=== PATIENT | male | born 1960 | race Caucasian/White ===

== ENCOUNTER 2017-02-11 10:40 | Outpatient (CLI) | payer MEDICARE ==
--- NOTE | 2017-02-11 19:18 | RAD ---
CHEST TWO VIEWS 02/11/17 The heart is normal in size for body habitus. The mediastinum shows no widening or shift. The lungs are fully inflated and clear. At most, there may be a little bit of lingular scarring. Degenerative changes are prominent in the thoracic spine. No gross fractures were indicated. IMPRESSION: No acute thoracic finding. POS: HOME
== END 2017-02-11 10:41 | disposition home or self-care (01) ==
LOC: BURRAD 10:40
PROVIDERS: ATTEND Nurse Practitioner
DX: S20.212A Contusion of left front wall of thorax, initial encounter (principal)
CPT/HCPCS: 71020

== ENCOUNTER 2022-04-16 01:21 | Inpatient (IN) | payer MEDICARE ==
[2022-04-16 01:45] VITALS: BMI 51.3
[2022-04-16] MEDS ORDERED: Hydrocodone-Acetamin 15 ML UDCUP PO PRN (03:14)
[2022-04-16] MEDS ORDERED: Hydrocodone-Acetamin 15 ML UDCUP ONE (03:41)
[2022-04-16] MEDS ORDERED: [UNRECOGNIZED DRUG - OTHER] PO PRN (06:25)
[2022-04-16] MEDS ORDERED: Cyclobenzaprine 10 MG TAB PO PRN ×2 (06:25→06:30)
[2022-04-16] MEDS ORDERED: ACETAMINOPHEN PO PRN ×2 (06:25→06:33)
[2022-04-16] MEDS ORDERED: [UNRECOGNIZED DRUG - OTHER] PO PRN (06:33)
[2022-04-16] MEDS ORDERED: Gabapentin 300 MG CAP PO SCH (09:00)
[2022-04-16] MEDS ORDERED: PHENTERMINE HCL 37.5 MG PO SCH ×2 (09:00)
[2022-04-16] MEDS ORDERED: Fluticasone Propionate Nasal Spray 16 gm Bottle NASAL SCH ×2 (09:00)
[2022-04-16] MEDS: Gabapentin 300 MG CAP PO SCH ×2 (09:24→21:33)
[2022-04-16] MEDS: Tamsulosin HCl 0.4 MG CAP PO SCH (09:24)
[2022-04-16] MEDS: Aspirin 81 mg Enteric Coated Tablet PO SCH (09:24)
[2022-04-16] MEDS: DULoxetine 30 MG CAP PO SCH (09:24)
[2022-04-16] MEDS: Lisinopril 5 MG TAB PO SCH (09:26)
[2022-04-16] MEDS: Cyclobenzaprine 10 MG TAB PO PRN ×2 (09:40→19:41)
[2022-04-16 09:46] LABS: SARS-CoV-2 NAA Rapid Test Not Detected (NotDetected)
[2022-04-16] MEDS ORDERED: Fluticasone Propionate Nasal Spray 16 gm Bottle NASAL PRN (10:35)
[2022-04-16] MEDS: HYDROcodone/Acetaminophen 10/325 mg Tablet PO PRN ×2 (11:01→19:41)
[2022-04-16] MEDS: Polyethylene Glycol 3350 17 GM Packet PO SCH (21:32)
[2022-04-16] MEDS: Enoxaparin Sodium 40 MG/0.4 ML SYRINGE SC SCH (21:34)
[2022-04-17] MEDS: HYDROcodone/Acetaminophen 10/325 mg Tablet PO PRN ×2 (01:42→09:18)
[2022-04-17 05:47] LABS: #Basophils 0.1 thou/uL (0.0-0.2); #Eosinphils 0.6 thou/uL (0.0-0.7); #Lymphocytes 1.8 thou/uL (1.20-3.40); #Monocytes 1.3 thou/uL (0.11-0.59); #Neutrophils 7.5 thou/uL (1.40-6.50); %Basophils 1.1 % (0.0-1.0); %Eosinophils 5.3 % (0.0-10.0); %Lymphocytes 15.8 % (21.0-51.0); %Monocytes 11.2 % (0.0-10.0); %Neutrophils 66.7 % (42.0-75.0); Mean Corpuscular HGB CONC 32.8 g/dL (32.0-36.0); Mean Corpuscular Hemoglobin 27.7 pg (27.0-31.0); Mean Corpuscular Volume 84.4 fL (78.0-98.0); Mean Platelet Volume 6.5 fL (7.4-10.4); Platelet Count 396 thou/uL (130-400); RBC Distribution Width 13.9 % (11.5-14.5); Red Blood Cell (RBC) Count 3.63 mill/uL (4.70-6.10); White Blood Cell (WBC) Count 11.3 thou/uL (4.8-10.8)
[2022-04-17 05:52] LABS: ALT (SGPT) 26 U/L (8-55); AST (SGOT) 25 U/L (5-34); Albumin 3.2 g/dL (3.5-5.0); Alkaline Phosphatase 67 U/L (40-110); Anion Gap 15 mmol/L (10-20); BUN (Urea Nitrogen) 24 mg/dL (8.4-25.7); Bilirubin, Total 0.6 mg/dL (0.2-1.2); Calc. Creatinine Clearance 219 mL/min (70-130); Calcium 9.8 mg/dL (7.8-10.44); Carbon Dioxide 26 mmol/L (22-29); Chloride 100 mmol/L (98-107); Globulin 3.4 g/dL (2.4-3.5); Glucose 109 mg/dL (70-105); Potassium 4.4 mmol/L (3.5-5.1); Protein, Total 6.6 g/dL (6.0-8.3); Sodium 137 mmol/L (136-145)
[2022-04-17] MEDS: Levothyroxine Sodium 50 MCG TAB PO SCH (06:18)
[2022-04-17] MEDS: DULoxetine 30 MG CAP PO SCH (09:10)
[2022-04-17] MEDS: Tamsulosin HCl 0.4 MG CAP PO SCH (09:10)
[2022-04-17] MEDS: Gabapentin 300 MG CAP PO SCH ×2 (09:11→20:47)
[2022-04-17] MEDS: Loratadine 10 MG TAB PO SCH (09:12)
[2022-04-17] MEDS: Lisinopril 5 MG TAB PO SCH (09:12)
[2022-04-17] MEDS: Aspirin 81 mg Enteric Coated Tablet PO SCH (09:12)
[2022-04-17] MEDS: [UNRECOGNIZED DRUG - OTHER] PO SCH (09:14)
[2022-04-17] MEDS: MAGNESIUM PO SCH (09:14)
[2022-04-17] MEDS: CALCIUM PO SCH (09:14)
[2022-04-17] MEDS: ZINC PO SCH (09:14)
[2022-04-17] MEDS: Cyclobenzaprine 10 MG TAB PO PRN ×2 (09:15→17:48)
[2022-04-17 11:53] LABS: Free T4 (Free Thyroxine) 0.88 ng/dL (0.70-1.48)
[2022-04-17] MEDS: HYDROcodone/Acetaminophen 10/325 mg Tablet PO SCH ×3 (12:05→23:52)
[2022-04-17] MEDS: Bisacodyl 5 MG TAB PO PRN (12:14)
[2022-04-17] MEDS: Polyethylene Glycol 3350 17 GM Packet PO SCH (20:44)
[2022-04-17] MEDS: Enoxaparin Sodium 40 MG/0.4 ML SYRINGE SC SCH (20:45)
[2022-04-17] MEDS: Ibuprofen 800 MG TAB PO PRN (20:45)
[2022-04-18] MEDS: HYDROcodone/Acetaminophen 10/325 mg Tablet PO SCH ×3 (06:02→17:51)
[2022-04-18] MEDS: Levothyroxine Sodium 50 MCG TAB PO SCH (06:03)
[2022-04-18] MEDS: Ibuprofen 800 MG TAB PO PRN ×2 (06:10→20:16)
[2022-04-18] MEDS: Bisacodyl 5 MG TAB PO PRN (08:45)
[2022-04-18] MEDS: Cyclobenzaprine 10 MG TAB PO PRN ×2 (08:45→15:18)
[2022-04-18] MEDS: Loratadine 10 MG TAB PO SCH (08:46)
[2022-04-18] MEDS: DULoxetine 30 MG CAP PO SCH (08:46)
[2022-04-18] MEDS: Gabapentin 300 MG CAP PO SCH ×3 (08:46→20:21)
[2022-04-18] MEDS: Aspirin 81 mg Enteric Coated Tablet PO SCH (08:47)
[2022-04-18] MEDS: Tamsulosin HCl 0.4 MG CAP PO SCH (08:47)
[2022-04-18] MEDS: Lisinopril 5 MG TAB PO SCH (08:47)
[2022-04-18] MEDS: CALCIUM PO SCH (08:58)
[2022-04-18] MEDS: MAGNESIUM PO SCH (08:58)
[2022-04-18] MEDS: ZINC PO SCH (08:58)
[2022-04-18] MEDS: [UNRECOGNIZED DRUG - OTHER] PO SCH (08:58)
[2022-04-18] MEDS: Enoxaparin Sodium 40 MG/0.4 ML SYRINGE SC SCH (20:21)
[2022-04-18] MEDS: Polyethylene Glycol 3350 17 GM Packet PO SCH (20:22)
[2022-04-19] MEDS: HYDROcodone/Acetaminophen 10/325 mg Tablet PO SCH ×4 (00:11→18:03)
[2022-04-19] MEDS: Levothyroxine Sodium 50 MCG TAB PO SCH (05:57)
[2022-04-19] MEDS: Gabapentin 300 MG CAP PO SCH ×3 (09:58→21:54)
[2022-04-19] MEDS: DULoxetine 30 MG CAP PO SCH (09:58)
[2022-04-19] MEDS: Tamsulosin HCl 0.4 MG CAP PO SCH (09:59)
[2022-04-19] MEDS: Loratadine 10 MG TAB PO SCH (09:59)
[2022-04-19] MEDS: Lisinopril 5 MG TAB PO SCH (09:59)
[2022-04-19] MEDS: Aspirin 81 mg Enteric Coated Tablet PO SCH (10:00)
[2022-04-19] MEDS: Cyclobenzaprine 10 MG TAB PO PRN (10:03)
[2022-04-19] MEDS: Bisacodyl 5 MG TAB PO PRN (10:05)
[2022-04-19] MEDS: ZINC PO SCH (10:08)
[2022-04-19] MEDS: [UNRECOGNIZED DRUG - OTHER] PO SCH (10:08)
[2022-04-19] MEDS: MAGNESIUM PO SCH (10:08)
[2022-04-19] MEDS: CALCIUM PO SCH (10:08)
[2022-04-19] MEDS: Ibuprofen 800 MG TAB PO PRN (16:24)
[2022-04-19] MEDS: Enoxaparin Sodium 40 MG/0.4 ML SYRINGE SC SCH (21:53)
[2022-04-19] MEDS: Polyethylene Glycol 3350 17 GM Packet PO SCH (21:53)
[2022-04-20] MEDS: HYDROcodone/Acetaminophen 10/325 mg Tablet PO SCH ×4 (00:03→17:36)
[2022-04-20] MEDS: Polyethylene Glycol 3350 17 GM Packet PO SCH ×2 (00:05→20:40)
[2022-04-20] MEDS: [UNRECOGNIZED DRUG - OTHER] PO SCH ×2 (00:07→20:40)
[2022-04-20] MEDS: Cyclobenzaprine 10 MG TAB PO PRN ×2 (04:08→14:52)
[2022-04-20] MEDS: Levothyroxine Sodium 50 MCG TAB PO SCH (05:44)
[2022-04-20] MEDS: Lubiprostone 24 MCG CAP PO SCH (08:56)
[2022-04-20] MEDS: Lisinopril 5 MG TAB PO SCH (08:57)
[2022-04-20] MEDS: DULoxetine 30 MG CAP PO SCH (08:58)
[2022-04-20] MEDS: Aspirin 81 mg Enteric Coated Tablet PO SCH (08:58)
[2022-04-20] MEDS: Ibuprofen 800 MG TAB PO PRN ×2 (08:58→20:46)
[2022-04-20] MEDS: Loratadine 10 MG TAB PO SCH (08:58)
[2022-04-20] MEDS: Gabapentin 300 MG CAP PO SCH ×3 (08:59→20:39)
[2022-04-20] MEDS: Tamsulosin HCl 0.4 MG CAP PO SCH (08:59)
[2022-04-20] MEDS: MAGNESIUM PO SCH (09:10)
[2022-04-20] MEDS: [UNRECOGNIZED DRUG - OTHER] PO SCH (09:10)
[2022-04-20] MEDS: ZINC PO SCH (09:10)
[2022-04-20] MEDS: CALCIUM PO SCH (09:10)
[2022-04-20] MEDS: Milk Of Magnesia 30 ML UDCUP PO PRN (17:40)
[2022-04-20] MEDS: Enoxaparin Sodium 40 MG/0.4 ML SYRINGE SC SCH (20:39)
[2022-04-20] MEDS: Bisacodyl 5 MG TAB PO PRN (20:39)
[2022-04-21] MEDS: HYDROcodone/Acetaminophen 10/325 mg Tablet PO SCH ×4 (05:09→17:34)
[2022-04-21] MEDS: Levothyroxine Sodium 50 MCG TAB PO SCH (05:10)
[2022-04-21] MEDS: Lubiprostone 24 MCG CAP PO SCH (08:29)
[2022-04-21] MEDS: DULoxetine 30 MG CAP PO SCH (08:29)
[2022-04-21] MEDS: Lisinopril 5 MG TAB PO SCH (08:30)
[2022-04-21] MEDS: Ibuprofen 800 MG TAB PO PRN ×2 (08:30→21:10)
[2022-04-21] MEDS: Loratadine 10 MG TAB PO SCH (08:30)
[2022-04-21] MEDS: Tamsulosin HCl 0.4 MG CAP PO SCH (08:30)
[2022-04-21] MEDS: Aspirin 81 mg Enteric Coated Tablet PO SCH (08:31)
[2022-04-21] MEDS: Gabapentin 300 MG CAP PO SCH ×3 (08:31→21:08)
[2022-04-21] MEDS: ZINC PO SCH (08:38)
[2022-04-21] MEDS: MAGNESIUM PO SCH (08:38)
[2022-04-21] MEDS: CALCIUM PO SCH (08:38)
[2022-04-21] MEDS: [UNRECOGNIZED DRUG - OTHER] PO SCH (08:38)
[2022-04-21] MEDS: Milk Of Magnesia 30 ML UDCUP PO PRN (14:28)
[2022-04-21] MEDS: Enoxaparin Sodium 40 MG/0.4 ML SYRINGE SC SCH (21:09)
[2022-04-21] MEDS: Polyethylene Glycol 3350 17 GM Packet PO SCH (21:09)
[2022-04-21] MEDS: Bisacodyl 5 MG TAB PO PRN (21:09)
[2022-04-21] MEDS: [UNRECOGNIZED DRUG - OTHER] PO SCH (21:10)
[2022-04-22] MEDS: HYDROcodone/Acetaminophen 10/325 mg Tablet PO SCH ×4 (00:10→17:35)
[2022-04-22] MEDS: Levothyroxine Sodium 50 MCG TAB PO SCH (05:24)
[2022-04-22] MEDS: Lubiprostone 24 MCG CAP PO SCH (08:47)
[2022-04-22] MEDS: DULoxetine 30 MG CAP PO SCH (08:48)
[2022-04-22] MEDS: Aspirin 81 mg Enteric Coated Tablet PO SCH (08:48)
[2022-04-22] MEDS: Gabapentin 300 MG CAP PO SCH ×3 (08:49→20:47)
[2022-04-22] MEDS: Tamsulosin HCl 0.4 MG CAP PO SCH (08:49)
[2022-04-22] MEDS: Lisinopril 5 MG TAB PO SCH (08:51)
[2022-04-22] MEDS: Loratadine 10 MG TAB PO SCH (08:51)
[2022-04-22] MEDS: CALCIUM PO SCH (08:53)
[2022-04-22] MEDS: ZINC PO SCH (08:53)
[2022-04-22] MEDS: [UNRECOGNIZED DRUG - OTHER] PO SCH (08:53)
[2022-04-22] MEDS: MAGNESIUM PO SCH (08:53)
[2022-04-22] MEDS: Ibuprofen 800 MG TAB PO PRN (10:10)
[2022-04-22] MEDS: Enoxaparin Sodium 40 MG/0.4 ML SYRINGE SC SCH (20:48)
[2022-04-22] MEDS: [UNRECOGNIZED DRUG - OTHER] PO SCH (20:48)
[2022-04-22] MEDS: Polyethylene Glycol 3350 17 GM Packet PO SCH (20:49)
[2022-04-22] MEDS: Cyclobenzaprine 10 MG TAB PO PRN (21:47)
[2022-04-23] MEDS: HYDROcodone/Acetaminophen 10/325 mg Tablet PO SCH ×4 (00:06→22:19)
[2022-04-23] MEDS: Ibuprofen 800 MG TAB PO PRN ×2 (03:14→15:07)
[2022-04-23] MEDS: Levothyroxine Sodium 50 MCG TAB PO SCH (06:09)
[2022-04-23] MEDS: Lubiprostone 24 MCG CAP PO SCH (08:29)
[2022-04-23] MEDS: Gabapentin 300 MG CAP PO SCH ×3 (08:29→21:39)
[2022-04-23] MEDS: Aspirin 81 mg Enteric Coated Tablet PO SCH (08:29)
[2022-04-23] MEDS: Tamsulosin HCl 0.4 MG CAP PO SCH (08:30)
[2022-04-23] MEDS: Loratadine 10 MG TAB PO SCH (08:30)
[2022-04-23] MEDS: Lisinopril 5 MG TAB PO SCH (08:33)
[2022-04-23] MEDS: [UNRECOGNIZED DRUG - OTHER] PO SCH (08:42)
[2022-04-23] MEDS: MAGNESIUM PO SCH (08:42)
[2022-04-23] MEDS: CALCIUM PO SCH (08:42)
[2022-04-23] MEDS: ZINC PO SCH (08:42)
[2022-04-23] MEDS: DULoxetine 30 MG CAP PO SCH (08:42)
[2022-04-23] MEDS: Cyclobenzaprine 10 MG TAB PO PRN (16:28)
[2022-04-23] MEDS: Polyethylene Glycol 3350 17 GM Packet PO SCH (21:39)
[2022-04-23] MEDS: [UNRECOGNIZED DRUG - OTHER] PO SCH (21:39)
[2022-04-23] MEDS: Enoxaparin Sodium 40 MG/0.4 ML SYRINGE SC SCH (21:40)
[2022-04-24] MEDS: HYDROcodone/Acetaminophen 10/325 mg Tablet PO SCH (05:58)
[2022-04-24] MEDS: Levothyroxine Sodium 50 MCG TAB PO SCH (05:58)
[2022-04-24] MEDS: Aspirin 81 mg Enteric Coated Tablet PO SCH (09:08)
[2022-04-24] MEDS: Ibuprofen 800 MG TAB PO PRN (09:08)
[2022-04-24] MEDS: Gabapentin 300 MG CAP PO SCH ×3 (09:09→20:22)
[2022-04-24] MEDS: DULoxetine 30 MG CAP PO SCH (09:09)
[2022-04-24] MEDS: Tamsulosin HCl 0.4 MG CAP PO SCH (09:09)
[2022-04-24] MEDS: Loratadine 10 MG TAB PO SCH (09:10)
[2022-04-24] MEDS: Lisinopril 5 MG TAB PO SCH (09:10)
[2022-04-24] MEDS: Lubiprostone 24 MCG CAP PO SCH (09:10)
[2022-04-24] MEDS: CALCIUM PO SCH (09:13)
[2022-04-24] MEDS: [UNRECOGNIZED DRUG - OTHER] PO SCH (09:13)
[2022-04-24] MEDS: ZINC PO SCH (09:13)
[2022-04-24] MEDS: MAGNESIUM PO SCH (09:13)
[2022-04-24] MEDS: HYDROcodone/Acetaminophen 10/325 mg Tablet PO PRN (15:47)
[2022-04-24] MEDS: Polyethylene Glycol 3350 17 GM Packet PO SCH (20:21)
[2022-04-24] MEDS: Enoxaparin Sodium 40 MG/0.4 ML SYRINGE SC SCH (20:21)
[2022-04-24] MEDS: Cyclobenzaprine 10 MG TAB PO PRN (20:22)
[2022-04-24] MEDS: [UNRECOGNIZED DRUG - OTHER] PO SCH (20:31)
[2022-04-25] MEDS: HYDROcodone/Acetaminophen 10/325 mg Tablet PO PRN ×2 (00:14→14:23)
[2022-04-25] MEDS: Ibuprofen 800 MG TAB PO PRN ×2 (04:12→22:13)
[2022-04-25] MEDS: Cyclobenzaprine 10 MG TAB PO PRN (04:13)
[2022-04-25] MEDS: Levothyroxine Sodium 50 MCG TAB PO SCH (05:48)
[2022-04-25] MEDS: Lubiprostone 24 MCG CAP PO SCH (08:08)
[2022-04-25] MEDS: DULoxetine 30 MG CAP PO SCH (08:08)
[2022-04-25] MEDS: Tamsulosin HCl 0.4 MG CAP PO SCH (08:09)
[2022-04-25] MEDS: Loratadine 10 MG TAB PO SCH (08:09)
[2022-04-25] MEDS: Aspirin 81 mg Enteric Coated Tablet PO SCH (08:09)
[2022-04-25] MEDS: Lisinopril 5 MG TAB PO SCH (08:09)
[2022-04-25] MEDS: Gabapentin 300 MG CAP PO SCH ×3 (08:09→22:07)
[2022-04-25] MEDS: MAGNESIUM PO SCH (08:17)
[2022-04-25] MEDS: [UNRECOGNIZED DRUG - OTHER] PO SCH (08:17)
[2022-04-25] MEDS: CALCIUM PO SCH (08:17)
[2022-04-25] MEDS: ZINC PO SCH (08:17)
[2022-04-25] MEDS: Polyethylene Glycol 3350 17 GM Packet PO SCH (22:06)
[2022-04-25] MEDS: Enoxaparin Sodium 40 MG/0.4 ML SYRINGE SC SCH (22:06)
[2022-04-25] MEDS: [UNRECOGNIZED DRUG - OTHER] PO SCH (22:06)
[2022-04-26] MEDS: Levothyroxine Sodium 50 MCG TAB PO SCH (05:03)
[2022-04-26] MEDS: Lisinopril 5 MG TAB PO SCH (08:19)
[2022-04-26] MEDS: Aspirin 81 mg Enteric Coated Tablet PO SCH (08:19)
[2022-04-26] MEDS: Gabapentin 300 MG CAP PO SCH ×3 (08:22→21:23)
[2022-04-26] MEDS: Loratadine 10 MG TAB PO SCH (08:23)
[2022-04-26] MEDS: Tamsulosin HCl 0.4 MG CAP PO SCH (08:23)
[2022-04-26] MEDS: DULoxetine 30 MG CAP PO SCH (08:23)
[2022-04-26] MEDS: Lubiprostone 24 MCG CAP PO SCH (08:23)
[2022-04-26] MEDS: Ibuprofen 800 MG TAB PO PRN (08:23)
[2022-04-26] MEDS: [UNRECOGNIZED DRUG - OTHER] PO SCH (08:27)
[2022-04-26] MEDS: MAGNESIUM PO SCH (08:27)
[2022-04-26] MEDS: CALCIUM PO SCH (08:27)
[2022-04-26] MEDS: ZINC PO SCH (08:27)
[2022-04-26] MEDS: [UNRECOGNIZED DRUG - OTHER] PO SCH (21:23)
[2022-04-26] MEDS: Enoxaparin Sodium 40 MG/0.4 ML SYRINGE SC SCH (21:23)
[2022-04-26] MEDS: Polyethylene Glycol 3350 17 GM Packet PO SCH (21:23)
[2022-04-26] MEDS: Cyclobenzaprine 10 MG TAB PO PRN (21:28)
[2022-04-27] MEDS: Levothyroxine Sodium 50 MCG TAB PO SCH (05:29)
[2022-04-27] MEDS: HYDROcodone/Acetaminophen 10/325 mg Tablet PO PRN (07:18)
[2022-04-27] MEDS: [UNRECOGNIZED DRUG - OTHER] PO SCH (08:42)
[2022-04-27] MEDS: ZINC PO SCH (08:42)
[2022-04-27] MEDS: MAGNESIUM PO SCH (08:42)
[2022-04-27] MEDS: CALCIUM PO SCH (08:42)
[2022-04-27] MEDS: Aspirin 81 mg Enteric Coated Tablet PO SCH (08:43)
[2022-04-27] MEDS: Lubiprostone 24 MCG CAP PO SCH (08:43)
[2022-04-27] MEDS: Ibuprofen 800 MG TAB PO PRN (08:43)
[2022-04-27] MEDS: DULoxetine 30 MG CAP PO SCH (08:43)
[2022-04-27] MEDS: Tamsulosin HCl 0.4 MG CAP PO SCH (08:43)
[2022-04-27] MEDS: Loratadine 10 MG TAB PO SCH (08:44)
[2022-04-27] MEDS: Lisinopril 5 MG TAB PO SCH (08:44)
[2022-04-27] MEDS: Gabapentin 300 MG CAP PO SCH ×3 (08:47→21:27)
[2022-04-27] MEDS: Cyclobenzaprine 10 MG TAB PO PRN (15:03)
[2022-04-27] MEDS: Enoxaparin Sodium 40 MG/0.4 ML SYRINGE SC SCH (21:28)
[2022-04-27] MEDS: Polyethylene Glycol 3350 17 GM Packet PO SCH (21:28)
[2022-04-27] MEDS: [UNRECOGNIZED DRUG - OTHER] PO SCH (21:31)
[2022-04-28] MEDS: Levothyroxine Sodium 50 MCG TAB PO SCH (05:30)
[2022-04-28] MEDS: HYDROcodone/Acetaminophen 10/325 mg Tablet PO PRN (07:48)
[2022-04-28] MEDS: Gabapentin 300 MG CAP PO SCH ×3 (09:25→21:11)
[2022-04-28] MEDS: Lisinopril 5 MG TAB PO SCH (09:25)
[2022-04-28] MEDS: Aspirin 81 mg Enteric Coated Tablet PO SCH (09:25)
[2022-04-28] MEDS: Lubiprostone 24 MCG CAP PO SCH (09:26)
[2022-04-28] MEDS: Ibuprofen 800 MG TAB PO PRN ×2 (09:26→21:19)
[2022-04-28] MEDS: Loratadine 10 MG TAB PO SCH (09:26)
[2022-04-28] MEDS: Tamsulosin HCl 0.4 MG CAP PO SCH (09:26)
[2022-04-28] MEDS: DULoxetine 30 MG CAP PO SCH (09:27)
[2022-04-28] MEDS: [UNRECOGNIZED DRUG - OTHER] PO SCH (09:29)
[2022-04-28] MEDS: ZINC PO SCH (09:29)
[2022-04-28] MEDS: CALCIUM PO SCH (09:29)
[2022-04-28] MEDS: MAGNESIUM PO SCH (09:29)
[2022-04-28] MEDS: Cyclobenzaprine 10 MG TAB PO PRN ×2 (10:31→21:19)
[2022-04-28] MEDS: Enoxaparin Sodium 40 MG/0.4 ML SYRINGE SC SCH (21:10)
[2022-04-28] MEDS: [UNRECOGNIZED DRUG - OTHER] PO SCH (21:11)
[2022-04-28] MEDS: Polyethylene Glycol 3350 17 GM Packet PO SCH (21:12)
[2022-04-29] MEDS: Levothyroxine Sodium 50 MCG TAB PO SCH (05:45)
[2022-04-29] MEDS: Gabapentin 300 MG CAP PO SCH ×3 (09:16→20:31)
[2022-04-29] MEDS: Lisinopril 5 MG TAB PO SCH (09:18)
[2022-04-29] MEDS: Cyclobenzaprine 10 MG TAB PO PRN (09:18)
[2022-04-29] MEDS: Aspirin 81 mg Enteric Coated Tablet PO SCH (09:18)
[2022-04-29] MEDS: DULoxetine 30 MG CAP PO SCH (09:18)
[2022-04-29] MEDS: Loratadine 10 MG TAB PO SCH (09:19)
[2022-04-29] MEDS: Tamsulosin HCl 0.4 MG CAP PO SCH (09:19)
[2022-04-29] MEDS: ZINC PO SCH (09:22)
[2022-04-29] MEDS: CALCIUM PO SCH (09:22)
[2022-04-29] MEDS: MAGNESIUM PO SCH (09:22)
[2022-04-29] MEDS: [UNRECOGNIZED DRUG - OTHER] PO SCH (09:22)
[2022-04-29] MEDS: Lubiprostone 24 MCG CAP PO SCH (09:26)
[2022-04-29] MEDS: HYDROcodone/Acetaminophen 10/325 mg Tablet PO PRN ×2 (11:29→20:32)
[2022-04-29] MEDS: Enoxaparin Sodium 40 MG/0.4 ML SYRINGE SC SCH (20:30)
[2022-04-29] MEDS: Polyethylene Glycol 3350 17 GM Packet PO SCH (20:31)
[2022-04-29] MEDS: [UNRECOGNIZED DRUG - OTHER] PO SCH (20:48)
[2022-04-30] MEDS: Levothyroxine Sodium 50 MCG TAB PO SCH (05:18)
[2022-04-30] MEDS: Ibuprofen 800 MG TAB PO PRN (09:22)
[2022-04-30] MEDS: [UNRECOGNIZED DRUG - OTHER] PO SCH (09:23)
[2022-04-30] MEDS: ZINC PO SCH (09:23)
[2022-04-30] MEDS: CALCIUM PO SCH (09:23)
[2022-04-30] MEDS: MAGNESIUM PO SCH (09:23)
[2022-04-30] MEDS: Gabapentin 300 MG CAP PO SCH ×3 (09:24→20:56)
[2022-04-30] MEDS: Aspirin 81 mg Enteric Coated Tablet PO SCH (09:25)
[2022-04-30] MEDS: Loratadine 10 MG TAB PO SCH (09:25)
[2022-04-30] MEDS: Tamsulosin HCl 0.4 MG CAP PO SCH (09:25)
[2022-04-30] MEDS: Lubiprostone 24 MCG CAP PO SCH (09:25)
[2022-04-30] MEDS: DULoxetine 30 MG CAP PO SCH (09:25)
[2022-04-30] MEDS: Lisinopril 5 MG TAB PO SCH (09:26)
[2022-04-30] MEDS: Polyethylene Glycol 3350 17 GM Packet PO SCH (20:56)
[2022-04-30] MEDS: Enoxaparin Sodium 40 MG/0.4 ML SYRINGE SC SCH (20:56)
[2022-04-30] MEDS: [UNRECOGNIZED DRUG - OTHER] PO SCH (20:58)
[2022-05-01] MEDS: Levothyroxine Sodium 50 MCG TAB PO SCH (05:40)
[2022-05-01] MEDS: Ibuprofen 800 MG TAB PO PRN ×2 (08:32→21:40)
[2022-05-01] MEDS: Loratadine 10 MG TAB PO SCH (08:33)
[2022-05-01] MEDS: DULoxetine 30 MG CAP PO SCH (08:33)
[2022-05-01] MEDS: Aspirin 81 mg Enteric Coated Tablet PO SCH (08:33)
[2022-05-01] MEDS: Gabapentin 300 MG CAP PO SCH ×3 (08:34→21:34)
[2022-05-01] MEDS: Lisinopril 5 MG TAB PO SCH (08:34)
[2022-05-01] MEDS: ZINC PO SCH (08:35)
[2022-05-01] MEDS: [UNRECOGNIZED DRUG - OTHER] PO SCH (08:35)
[2022-05-01] MEDS: MAGNESIUM PO SCH (08:35)
[2022-05-01] MEDS: Tamsulosin HCl 0.4 MG CAP PO SCH (08:35)
[2022-05-01] MEDS: CALCIUM PO SCH (08:35)
[2022-05-01] MEDS: Lubiprostone 24 MCG CAP PO SCH (08:36)
[2022-05-01] MEDS: HYDROcodone/Acetaminophen 10/325 mg Tablet PO PRN (16:40)
[2022-05-01] MEDS: Polyethylene Glycol 3350 17 GM Packet PO SCH (21:34)
[2022-05-01] MEDS: Enoxaparin Sodium 40 MG/0.4 ML SYRINGE SC SCH (21:34)
[2022-05-01] MEDS: [UNRECOGNIZED DRUG - OTHER] PO SCH (21:41)
[2022-05-02] MEDS: Levothyroxine Sodium 50 MCG TAB PO SCH (05:38)
[2022-05-02] MEDS: HYDROcodone/Acetaminophen 10/325 mg Tablet PO PRN (09:25)
[2022-05-02] MEDS: Gabapentin 300 MG CAP PO SCH ×3 (09:27→22:04)
[2022-05-02] MEDS: Lubiprostone 24 MCG CAP PO SCH (09:27)
[2022-05-02] MEDS: DULoxetine 30 MG CAP PO SCH (09:27)
[2022-05-02] MEDS: Tamsulosin HCl 0.4 MG CAP PO SCH (09:27)
[2022-05-02] MEDS: Loratadine 10 MG TAB PO SCH (09:27)
[2022-05-02] MEDS: Aspirin 81 mg Enteric Coated Tablet PO SCH (09:28)
[2022-05-02] MEDS: Lisinopril 5 MG TAB PO SCH (09:28)
[2022-05-02] MEDS: [UNRECOGNIZED DRUG - OTHER] PO SCH (09:38)
[2022-05-02] MEDS: MAGNESIUM PO SCH (09:38)
[2022-05-02] MEDS: ZINC PO SCH (09:38)
[2022-05-02] MEDS: CALCIUM PO SCH (09:38)
[2022-05-02] MEDS: Cyclobenzaprine 10 MG TAB PO PRN (15:25)
[2022-05-02] MEDS: Ibuprofen 800 MG TAB PO PRN (18:46)
[2022-05-02] MEDS: Enoxaparin Sodium 40 MG/0.4 ML SYRINGE SC SCH (22:03)
[2022-05-02] MEDS: [UNRECOGNIZED DRUG - OTHER] PO SCH (22:03)
[2022-05-02] MEDS: Polyethylene Glycol 3350 17 GM Packet PO SCH (22:05)
[2022-05-03] MEDS: Ibuprofen 800 MG TAB PO PRN ×2 (03:27→13:55)
[2022-05-03] MEDS: Levothyroxine Sodium 50 MCG TAB PO SCH (05:40)
[2022-05-03] MEDS: Loratadine 10 MG TAB PO SCH (09:11)
[2022-05-03] MEDS: Lubiprostone 24 MCG CAP PO SCH (09:11)
[2022-05-03] MEDS: Tamsulosin HCl 0.4 MG CAP PO SCH (09:12)
[2022-05-03] MEDS: Gabapentin 300 MG CAP PO SCH ×3 (09:12→22:18)
[2022-05-03] MEDS: DULoxetine 30 MG CAP PO SCH (09:13)
[2022-05-03] MEDS: Aspirin 81 mg Enteric Coated Tablet PO SCH (09:13)
[2022-05-03] MEDS: Lisinopril 5 MG TAB PO SCH (09:13)
[2022-05-03] MEDS: CALCIUM PO SCH (09:14)
[2022-05-03] MEDS: MAGNESIUM PO SCH (09:14)
[2022-05-03] MEDS: ZINC PO SCH (09:14)
[2022-05-03] MEDS: [UNRECOGNIZED DRUG - OTHER] PO SCH (09:14)
[2022-05-03] MEDS: Polyethylene Glycol 3350 17 GM Packet PO SCH (22:17)
[2022-05-03] MEDS: [UNRECOGNIZED DRUG - OTHER] PO SCH (22:17)
[2022-05-03] MEDS: Enoxaparin Sodium 40 MG/0.4 ML SYRINGE SC SCH (22:18)
[2022-05-03] MEDS: HYDROcodone/Acetaminophen 10/325 mg Tablet PO PRN (22:36)
[2022-05-04] MEDS: Cyclobenzaprine 10 MG TAB PO PRN ×2 (00:57→21:58)
[2022-05-04] MEDS: Levothyroxine Sodium 50 MCG TAB PO SCH (05:52)
[2022-05-04] MEDS: Lubiprostone 24 MCG CAP PO SCH (08:37)
[2022-05-04] MEDS: ZINC PO SCH (08:37)
[2022-05-04] MEDS: MAGNESIUM PO SCH (08:37)
[2022-05-04] MEDS: CALCIUM PO SCH (08:37)
[2022-05-04] MEDS: [UNRECOGNIZED DRUG - OTHER] PO SCH (08:37)
[2022-05-04] MEDS: Loratadine 10 MG TAB PO SCH (08:38)
[2022-05-04] MEDS: Ibuprofen 800 MG TAB PO PRN ×2 (08:38→21:59)
[2022-05-04] MEDS: Gabapentin 300 MG CAP PO SCH ×3 (08:38→21:40)
[2022-05-04] MEDS: Tamsulosin HCl 0.4 MG CAP PO SCH (08:38)
[2022-05-04] MEDS: Aspirin 81 mg Enteric Coated Tablet PO SCH (08:38)
[2022-05-04] MEDS: Lisinopril 5 MG TAB PO SCH (08:39)
[2022-05-04] MEDS: DULoxetine 30 MG CAP PO SCH (08:43)
[2022-05-04] MEDS: [UNRECOGNIZED DRUG - OTHER] PO SCH (21:41)
[2022-05-04] MEDS: Enoxaparin Sodium 40 MG/0.4 ML SYRINGE SC SCH (21:41)
[2022-05-04] MEDS: Polyethylene Glycol 3350 17 GM Packet PO SCH (21:42)
[2022-05-05] MEDS: Levothyroxine Sodium 50 MCG TAB PO SCH (06:27)
[2022-05-05] MEDS: Gabapentin 300 MG CAP PO SCH ×3 (08:16→21:00)
[2022-05-05] MEDS: Aspirin 81 mg Enteric Coated Tablet PO SCH (08:16)
[2022-05-05] MEDS: DULoxetine 30 MG CAP PO SCH (08:16)
[2022-05-05] MEDS: Loratadine 10 MG TAB PO SCH (08:16)
[2022-05-05] MEDS: Lisinopril 5 MG TAB PO SCH (08:16)
[2022-05-05] MEDS: Tamsulosin HCl 0.4 MG CAP PO SCH (08:16)
[2022-05-05] MEDS: Ibuprofen 800 MG TAB PO PRN (08:17)
[2022-05-05] MEDS: CALCIUM PO SCH (08:35)
[2022-05-05] MEDS: [UNRECOGNIZED DRUG - OTHER] PO SCH (08:35)
[2022-05-05] MEDS: MAGNESIUM PO SCH (08:35)
[2022-05-05] MEDS: ZINC PO SCH (08:35)
[2022-05-05] MEDS: Lubiprostone 24 MCG CAP PO SCH (08:36)
[2022-05-05] MEDS: HYDROcodone/Acetaminophen 10/325 mg Tablet PO PRN ×2 (13:21→21:07)
[2022-05-05] MEDS: Cyclobenzaprine 10 MG TAB PO PRN (15:40)
[2022-05-05] MEDS: Enoxaparin Sodium 40 MG/0.4 ML SYRINGE SC SCH (21:00)
[2022-05-05] MEDS: Polyethylene Glycol 3350 17 GM Packet PO SCH (21:01)
[2022-05-05] MEDS: [UNRECOGNIZED DRUG - OTHER] PO SCH (21:01)
[2022-05-06] MEDS: Levothyroxine Sodium 50 MCG TAB PO SCH (05:03)
[2022-05-06] MEDS: HYDROcodone/Acetaminophen 10/325 mg Tablet PO PRN (09:47)
[2022-05-06] MEDS: [UNRECOGNIZED DRUG - OTHER] PO SCH (09:49)
[2022-05-06] MEDS: CALCIUM PO SCH (09:49)
[2022-05-06] MEDS: MAGNESIUM PO SCH (09:49)
[2022-05-06] MEDS: ZINC PO SCH (09:49)
[2022-05-06] MEDS: Gabapentin 300 MG CAP PO SCH ×3 (09:50→20:54)
[2022-05-06] MEDS: Lubiprostone 24 MCG CAP PO SCH (09:50)
[2022-05-06] MEDS: Tamsulosin HCl 0.4 MG CAP PO SCH (09:51)
[2022-05-06] MEDS: Aspirin 81 mg Enteric Coated Tablet PO SCH (09:51)
[2022-05-06] MEDS: DULoxetine 30 MG CAP PO SCH (09:51)
[2022-05-06] MEDS: Loratadine 10 MG TAB PO SCH (09:52)
[2022-05-06] MEDS: Lisinopril 5 MG TAB PO SCH (09:57)
[2022-05-06] MEDS: Ibuprofen 800 MG TAB PO PRN (15:09)
[2022-05-06] MEDS: Enoxaparin Sodium 40 MG/0.4 ML SYRINGE SC SCH (20:54)
[2022-05-06] MEDS: Polyethylene Glycol 3350 17 GM Packet PO SCH (20:54)
[2022-05-06] MEDS: [UNRECOGNIZED DRUG - OTHER] PO SCH (20:59)
[2022-05-07] MEDS: Levothyroxine Sodium 50 MCG TAB PO SCH (05:22)
[2022-05-07] MEDS: HYDROcodone/Acetaminophen 10/325 mg Tablet PO PRN (07:32)
[2022-05-07] MEDS: Loratadine 10 MG TAB PO SCH (07:37)
[2022-05-07] MEDS: Lisinopril 5 MG TAB PO SCH (07:37)
[2022-05-07] MEDS: Aspirin 81 mg Enteric Coated Tablet PO SCH (07:37)
[2022-05-07] MEDS: Lubiprostone 24 MCG CAP PO SCH (07:37)
[2022-05-07] MEDS: Gabapentin 300 MG CAP PO SCH ×3 (07:38→22:35)
[2022-05-07] MEDS: DULoxetine 30 MG CAP PO SCH (07:38)
[2022-05-07] MEDS: Tamsulosin HCl 0.4 MG CAP PO SCH (07:40)
[2022-05-07] MEDS: [UNRECOGNIZED DRUG - OTHER] PO SCH (08:23)
[2022-05-07] MEDS: ZINC PO SCH (08:23)
[2022-05-07] MEDS: MAGNESIUM PO SCH (08:23)
[2022-05-07] MEDS: CALCIUM PO SCH (08:23)
[2022-05-07] MEDS: [UNRECOGNIZED DRUG - OTHER] PO SCH (22:34)
[2022-05-07] MEDS: Polyethylene Glycol 3350 17 GM Packet PO SCH (22:34)
[2022-05-07] MEDS: Enoxaparin Sodium 40 MG/0.4 ML SYRINGE SC SCH (22:36)
[2022-05-07] MEDS: Ibuprofen 800 MG TAB PO PRN (23:07)
[2022-05-08] MEDS: Levothyroxine Sodium 50 MCG TAB PO SCH (06:01)
[2022-05-08] MEDS: Loratadine 10 MG TAB PO SCH (08:34)
[2022-05-08] MEDS: Tamsulosin HCl 0.4 MG CAP PO SCH (08:34)
[2022-05-08] MEDS: DULoxetine 30 MG CAP PO SCH (08:34)
[2022-05-08] MEDS: Lubiprostone 24 MCG CAP PO SCH (08:34)
[2022-05-08] MEDS: Lisinopril 5 MG TAB PO SCH (08:34)
[2022-05-08] MEDS: Aspirin 81 mg Enteric Coated Tablet PO SCH (08:34)
[2022-05-08] MEDS: Gabapentin 300 MG CAP PO SCH ×3 (08:35→22:21)
[2022-05-08] MEDS: CALCIUM PO SCH (08:39)
[2022-05-08] MEDS: MAGNESIUM PO SCH (08:39)
[2022-05-08] MEDS: ZINC PO SCH (08:39)
[2022-05-08] MEDS: [UNRECOGNIZED DRUG - OTHER] PO SCH (08:39)
[2022-05-08] MEDS: Ibuprofen 800 MG TAB PO PRN (12:44)
[2022-05-08] MEDS: HYDROcodone/Acetaminophen 10/325 mg Tablet PO PRN (16:01)
[2022-05-08] MEDS: [UNRECOGNIZED DRUG - OTHER] PO SCH (22:20)
[2022-05-08] MEDS: Polyethylene Glycol 3350 17 GM Packet PO SCH (22:20)
[2022-05-08] MEDS: Enoxaparin Sodium 40 MG/0.4 ML SYRINGE SC SCH (22:21)
[2022-05-09] MEDS: Levothyroxine Sodium 50 MCG TAB PO SCH (05:01)
[2022-05-09] MEDS: CALCIUM PO SCH (08:07)
[2022-05-09] MEDS: ZINC PO SCH (08:07)
[2022-05-09] MEDS: MAGNESIUM PO SCH (08:07)
[2022-05-09] MEDS: [UNRECOGNIZED DRUG - OTHER] PO SCH (08:07)
[2022-05-09] MEDS: Lubiprostone 24 MCG CAP PO SCH (08:13)
[2022-05-09] MEDS: Aspirin 81 mg Enteric Coated Tablet PO SCH (08:13)
[2022-05-09] MEDS: DULoxetine 30 MG CAP PO SCH (08:14)
[2022-05-09] MEDS: Ibuprofen 800 MG TAB PO PRN (08:14)
[2022-05-09] MEDS: Tamsulosin HCl 0.4 MG CAP PO SCH (08:14)
[2022-05-09] MEDS: Gabapentin 300 MG CAP PO SCH ×3 (08:14→21:22)
[2022-05-09] MEDS: Loratadine 10 MG TAB PO SCH (08:15)
[2022-05-09] MEDS: Lisinopril 5 MG TAB PO SCH (08:19)
[2022-05-09] MEDS: HYDROcodone/Acetaminophen 10/325 mg Tablet PO PRN ×2 (13:25→21:40)
[2022-05-09] MEDS: [UNRECOGNIZED DRUG - OTHER] PO SCH (21:22)
[2022-05-09] MEDS: Polyethylene Glycol 3350 17 GM Packet PO SCH (21:23)
[2022-05-09] MEDS: Enoxaparin Sodium 40 MG/0.4 ML SYRINGE SC SCH (21:23)
[2022-05-10] MEDS: Levothyroxine Sodium 50 MCG TAB PO SCH (05:49)
[2022-05-10] MEDS: Gabapentin 300 MG CAP PO SCH ×3 (08:28→21:33)
[2022-05-10] MEDS: DULoxetine 30 MG CAP PO SCH (08:28)
[2022-05-10] MEDS: Tamsulosin HCl 0.4 MG CAP PO SCH (08:28)
[2022-05-10] MEDS: Aspirin 81 mg Enteric Coated Tablet PO SCH (08:28)
[2022-05-10] MEDS: Loratadine 10 MG TAB PO SCH (08:28)
[2022-05-10] MEDS: Lisinopril 5 MG TAB PO SCH (08:28)
[2022-05-10] MEDS: Lubiprostone 24 MCG CAP PO SCH (08:28)
[2022-05-10] MEDS: Ibuprofen 800 MG TAB PO PRN (08:29)
[2022-05-10] MEDS: CALCIUM PO SCH (08:33)
[2022-05-10] MEDS: ZINC PO SCH (08:33)
[2022-05-10] MEDS: [UNRECOGNIZED DRUG - OTHER] PO SCH (08:33)
[2022-05-10] MEDS: MAGNESIUM PO SCH (08:33)
[2022-05-10] MEDS: [UNRECOGNIZED DRUG - OTHER] PO SCH (21:33)
[2022-05-10] MEDS: Enoxaparin Sodium 40 MG/0.4 ML SYRINGE SC SCH (21:33)
[2022-05-10] MEDS: Polyethylene Glycol 3350 17 GM Packet PO SCH (21:33)
[2022-05-11] MEDS: Ibuprofen 800 MG TAB PO PRN (03:24)
[2022-05-11] MEDS: Levothyroxine Sodium 50 MCG TAB PO SCH (05:17)
[2022-05-11] MEDS: ZINC PO SCH (08:13)
[2022-05-11] MEDS: MAGNESIUM PO SCH (08:13)
[2022-05-11] MEDS: CALCIUM PO SCH (08:13)
[2022-05-11] MEDS: [UNRECOGNIZED DRUG - OTHER] PO SCH (08:13)
[2022-05-11] MEDS: DULoxetine 30 MG CAP PO SCH (08:14)
[2022-05-11] MEDS: Lisinopril 5 MG TAB PO SCH (08:14)
[2022-05-11] MEDS: Tamsulosin HCl 0.4 MG CAP PO SCH (08:14)
[2022-05-11] MEDS: Gabapentin 300 MG CAP PO SCH ×3 (08:15→20:34)
[2022-05-11] MEDS: Lubiprostone 24 MCG CAP PO SCH (08:15)
[2022-05-11] MEDS: HYDROcodone/Acetaminophen 10/325 mg Tablet PO PRN ×2 (08:15→20:36)
[2022-05-11] MEDS: Aspirin 81 mg Enteric Coated Tablet PO SCH (08:15)
[2022-05-11] MEDS: Loratadine 10 MG TAB PO SCH (08:15)
[2022-05-11] MEDS: Cyclobenzaprine 10 MG TAB PO PRN (14:50)
[2022-05-11] MEDS: Polyethylene Glycol 3350 17 GM Packet PO SCH (20:34)
[2022-05-11] MEDS: Enoxaparin Sodium 40 MG/0.4 ML SYRINGE SC SCH (20:35)
[2022-05-11] MEDS: [UNRECOGNIZED DRUG - OTHER] PO SCH (21:24)
[2022-05-12] MEDS: Levothyroxine Sodium 50 MCG TAB PO SCH (05:25)
[2022-05-12] MEDS: Loratadine 10 MG TAB PO SCH (07:49)
[2022-05-12] MEDS: Lisinopril 5 MG TAB PO SCH (07:49)
[2022-05-12] MEDS: Lubiprostone 24 MCG CAP PO SCH (07:49)
[2022-05-12] MEDS: DULoxetine 30 MG CAP PO SCH (07:50)
[2022-05-12] MEDS: Tamsulosin HCl 0.4 MG CAP PO SCH (07:50)
[2022-05-12] MEDS: Aspirin 81 mg Enteric Coated Tablet PO SCH (07:50)
[2022-05-12] MEDS: Gabapentin 300 MG CAP PO SCH ×3 (07:50→21:15)
[2022-05-12] MEDS: Ibuprofen 800 MG TAB PO PRN (07:51)
[2022-05-12] MEDS: ZINC PO SCH (08:01)
[2022-05-12] MEDS: [UNRECOGNIZED DRUG - OTHER] PO SCH (08:01)
[2022-05-12] MEDS: MAGNESIUM PO SCH (08:01)
[2022-05-12] MEDS: CALCIUM PO SCH (08:01)
[2022-05-12 12:25] LABS: Anion Gap 13 mmol/L (10-20); BUN (Urea Nitrogen) 22 mg/dL (8.4-25.7); Calc. Creatinine Clearance 147 mL/min (70-130); Carbon Dioxide 30 mmol/L (22-29); Chloride 99 mmol/L (98-107); Estimated GFR 70; Glucose 128 mg/dL (70-105); Potassium 4.5 mmol/L (3.5-5.1); Sodium 137 mmol/L (136-145)
[2022-05-12 12:49] LABS: Calcium 13.7 mg/dL (7.8-10.44)
[2022-05-12] MEDS ORDERED: Sodium Chloride 0.9% 1,000 ML IV SCH (14:15)
[2022-05-12] MEDS: [UNRECOGNIZED DRUG - OTHER] PO SCH (16:42)
[2022-05-12] MEDS: HYDROcodone/Acetaminophen 10/325 mg Tablet PO PRN (21:14)
[2022-05-12] MEDS: Polyethylene Glycol 3350 17 GM Packet PO SCH (21:15)
[2022-05-12] MEDS: Enoxaparin Sodium 40 MG/0.4 ML SYRINGE SC SCH (21:16)
[2022-05-13] MEDS: Levothyroxine Sodium 50 MCG TAB PO SCH (05:27)
[2022-05-13 05:41] LABS: #Basophils 0.1 thou/uL (0.0-0.2); #Eosinphils 0.3 thou/uL (0.0-0.7); #Lymphocytes 1.6 thou/uL (1.20-3.40); #Monocytes 0.8 thou/uL (0.11-0.59); #Neutrophils 5.4 thou/uL (1.40-6.50); %Basophils 1.7 % (0.0-1.0); %Eosinophils 4.1 % (0.0-10.0); %Lymphocytes 19.4 % (21.0-51.0); %Monocytes 10.1 % (0.0-10.0); %Neutrophils 64.7 % (42.0-75.0); Hemoglobin 10.2 g/dL (14.0-18.0); Mean Corpuscular HGB CONC 31.2 g/dL (32.0-36.0); Mean Corpuscular Hemoglobin 26.5 pg (27.0-31.0); Mean Platelet Volume 7.1 fL (7.4-10.4); Platelet Count 278 thou/uL (130-400); RBC Distribution Width 14.9 % (11.5-14.5); Red Blood Cell (RBC) Count 3.85 mill/uL (4.70-6.10); White Blood Cell (WBC) Count 8.3 thou/uL (4.8-10.8)
[2022-05-13 05:50] LABS: ALT (SGPT) 18 U/L (8-55); AST (SGOT) 13 U/L (5-34); Albumin 3.3 g/dL (3.5-5.0); Alkaline Phosphatase 68 U/L (40-110); Anion Gap 14 mmol/L (10-20); BUN (Urea Nitrogen) 20 mg/dL (8.4-25.7); Bilirubin, Total 0.5 mg/dL (0.2-1.2); Calc. Creatinine Clearance 172 mL/min (70-130); Carbon Dioxide 29 mmol/L (22-29); Chloride 99 mmol/L (98-107); Estimated GFR 84; Globulin 3.4 g/dL (2.4-3.5); Glucose 89 mg/dL (70-105); Potassium 4.3 mmol/L (3.5-5.1); Protein, Total 6.7 g/dL (6.0-8.3); Sodium 138 mmol/L (136-145)
[2022-05-13] MEDS: [UNRECOGNIZED DRUG - OTHER] PO SCH ×2 (08:27→14:25)
[2022-05-13] MEDS: HYDROcodone/Acetaminophen 10/325 mg Tablet PO PRN (08:28)
[2022-05-13] MEDS: Tamsulosin HCl 0.4 MG CAP PO SCH (08:29)
[2022-05-13] MEDS: Gabapentin 300 MG CAP PO SCH ×3 (08:29→21:28)
[2022-05-13] MEDS: DULoxetine 30 MG CAP PO SCH (08:29)
[2022-05-13] MEDS: Loratadine 10 MG TAB PO SCH (08:30)
[2022-05-13] MEDS: Aspirin 81 mg Enteric Coated Tablet PO SCH (08:30)
[2022-05-13] MEDS: Lisinopril 5 MG TAB PO SCH (08:31)
[2022-05-13] MEDS ORDERED: Iopamidol 370 76% 100 ML VIAL FS ONE (09:46)
[2022-05-13] MEDS: Ibuprofen 800 MG TAB PO PRN (10:04)
[2022-05-13] MEDS: Lubiprostone 24 MCG CAP PO SCH (14:25)
[2022-05-13] MEDS: Cyclobenzaprine 10 MG TAB PO PRN (21:27)
[2022-05-13] MEDS: Polyethylene Glycol 3350 17 GM Packet PO SCH (21:28)
[2022-05-13] MEDS: Enoxaparin Sodium 40 MG/0.4 ML SYRINGE SC SCH (21:29)
[2022-05-14] MEDS: [UNRECOGNIZED DRUG - OTHER] PO SCH ×4 (00:07→15:58)
[2022-05-14] MEDS: HYDROcodone/Acetaminophen 10/325 mg Tablet PO PRN ×2 (03:53→15:59)
[2022-05-14] MEDS: Levothyroxine Sodium 50 MCG TAB PO SCH (03:53)
[2022-05-14] MEDS: Gabapentin 300 MG CAP PO SCH ×4 (08:20→20:45)
[2022-05-14] MEDS: DULoxetine 30 MG CAP PO SCH (08:21)
[2022-05-14] MEDS: Lisinopril 5 MG TAB PO SCH (08:21)
[2022-05-14] MEDS: Loratadine 10 MG TAB PO SCH (08:21)
[2022-05-14] MEDS: Tamsulosin HCl 0.4 MG CAP PO SCH (08:21)
[2022-05-14] MEDS: Aspirin 81 mg Enteric Coated Tablet PO SCH (08:21)
[2022-05-14] MEDS: Ibuprofen 800 MG TAB PO PRN (09:30)
[2022-05-14] MEDS: Cyclobenzaprine 10 MG TAB PO PRN (09:31)
[2022-05-14] MEDS: Lubiprostone 24 MCG CAP PO SCH (11:54)
[2022-05-14] MEDS: Polyethylene Glycol 3350 17 GM Packet PO SCH (20:45)
[2022-05-14] MEDS: Enoxaparin Sodium 40 MG/0.4 ML SYRINGE SC SCH (20:48)
[2022-05-15] MEDS: Levothyroxine Sodium 50 MCG TAB PO SCH (05:43)
[2022-05-15 06:01] VITALS: TEMP 98.5
[2022-05-15] MEDS: [UNRECOGNIZED DRUG - OTHER] PO SCH ×2 (07:54→12:57)
[2022-05-15 09:10] VITALS: BP 137/87
[2022-05-15] MEDS: Aspirin 81 mg Enteric Coated Tablet PO SCH (09:11)
[2022-05-15] MEDS: Tamsulosin HCl 0.4 MG CAP PO SCH (09:11)
[2022-05-15] MEDS: HYDROcodone/Acetaminophen 10/325 mg Tablet PO PRN (09:11)
[2022-05-15] MEDS: DULoxetine 30 MG CAP PO SCH (09:12)
[2022-05-15] MEDS: Loratadine 10 MG TAB PO SCH (09:12)
[2022-05-15] MEDS: Gabapentin 300 MG CAP PO SCH (09:12)
[2022-05-15] MEDS: Lubiprostone 24 MCG CAP PO SCH (09:12)
[2022-05-15] MEDS: Lisinopril 5 MG TAB PO SCH (09:13)
== END 2022-05-15 14:28 | disposition short-term general hospital (02) | DRG 559 ==
LOC: BURMED 01:21
PROVIDERS: ADMIT Family Medicine; ATTEND Family Medicine
DX: S72.8X1D Other fracture of right femur, subsequent encounter for closed fracture with routine healing (principal); G93.6 Cerebral edema; Z68.43 Body mass index [BMI] 50.0-59.9, adult; W19.XXXD Unspecified fall, subsequent encounter; M19.90 Unspecified osteoarthritis, unspecified site; Z96.653 Presence of artificial knee joint, bilateral; I10 Essential (primary) hypertension; G47.33 Obstructive sleep apnea (adult) (pediatric); E03.9 Hypothyroidism, unspecified; E66.9 Obesity, unspecified; N28.89 Other specified disorders of kidney and ureter; R91.8 Other nonspecific abnormal finding of lung field; Z20.822 Contact with and (suspected) exposure to COVID-19; Z98.890 Other specified postprocedural states
CPT/HCPCS: 36415; 70470; 71260; 74176; 74177; 80048; 80053; 82330; 84439; 84443; 85025; J1650; J7050; Q9967; U0002; U0003; U0005

== ENCOUNTER 2022-06-06 15:13 | Inpatient (IN) | payer OTHER ==
[2022-06-06] MEDS ORDERED: Bisacodyl 5 MG TAB PO PRN (16:09)
[2022-06-06] MEDS ORDERED: HYDROcodone/Acetaminophen 10/325 mg Tablet PO PRN (16:09)
[2022-06-06] MEDS ORDERED: Acetaminophen 325 MG TAB PO PRN (16:12)
[2022-06-06 17:16] VITALS: BMI 48.1
[2022-06-06] MEDS: Dexamethasone 4 MG TAB PO SCH (18:09)
[2022-06-06] MEDS: Gabapentin 300 MG CAP PO SCH (20:43)
[2022-06-06] MEDS: Apixaban 5 MG TAB PO SCH (20:44)
[2022-06-06] MEDS: Polyethylene Glycol 3350 17 GM Packet PO SCH (21:13)
[2022-06-06] MEDS ORDERED: traMADol HCl 50 MG TAB PO PRN (21:31)
[2022-06-07] MEDS: Levothyroxine Sodium 50 MCG TAB PO SCH (05:48)
[2022-06-07 05:53] LABS: Anion Gap 14 mmol/L (10-20); BUN (Urea Nitrogen) 19 mg/dL (8.4-25.7); Calc. Creatinine Clearance 231 mL/min (70-130); Calcium 11.9 mg/dL (7.8-10.44); Carbon Dioxide 23 mmol/L (22-29); Chloride 103 mmol/L (98-107); Estimated GFR 105; Glucose 152 mg/dL (70-105); Potassium 4.9 mmol/L (3.5-5.1); Sodium 135 mmol/L (136-145)
[2022-06-07 05:58] LABS: #Basophils 0.1 thou/uL (0.0-0.2); #Monocytes 0.9 thou/uL (0.11-0.59); #Neutrophils 10.5 thou/uL (1.40-6.50); %Lymphocytes 7.8 % (21.0-51.0); %Monocytes 7.2 % (0.0-10.0); %Neutrophils 83.9 % (42.0-75.0); Hemoglobin 12.1 g/dL (14.0-18.0); Mean Corpuscular HGB CONC 31.3 g/dL (32.0-36.0); Mean Corpuscular Hemoglobin 25.9 pg (27.0-31.0); Mean Corpuscular Volume 82.8 fL (78.0-98.0); Mean Platelet Volume 6.3 fL (7.4-10.4); Platelet Count 300 thou/uL (130-400); RBC Distribution Width 16.3 % (11.5-14.5); Red Blood Cell (RBC) Count 4.67 mill/uL (4.70-6.10); White Blood Cell (WBC) Count 12.5 thou/uL (4.8-10.8)
[2022-06-07] MEDS: Apixaban 5 MG TAB PO SCH ×2 (08:26→20:23)
[2022-06-07] MEDS: Tamsulosin HCl 0.4 MG CAP PO SCH (08:26)
[2022-06-07] MEDS: DULoxetine 30 MG CAP PO SCH (08:26)
[2022-06-07] MEDS: Lubiprostone 24 MCG CAP PO SCH (08:26)
[2022-06-07] MEDS: Gabapentin 300 MG CAP PO SCH ×2 (08:27→20:23)
[2022-06-07] MEDS: Loratadine 10 MG TAB PO SCH (08:27)
[2022-06-07] MEDS: Dexamethasone 4 MG TAB PO SCH ×2 (08:27→17:01)
[2022-06-07] MEDS: Fluticasone Propionate Nasal Spray 16 gm Bottle NASAL SCH (08:30)
[2022-06-07] MEDS: Polyethylene Glycol 3350 17 GM Packet PO SCH (20:23)
[2022-06-08] MEDS: Levothyroxine Sodium 50 MCG TAB PO SCH (05:31)
[2022-06-08] MEDS: Tamsulosin HCl 0.4 MG CAP PO SCH (08:12)
[2022-06-08] MEDS: Gabapentin 300 MG CAP PO SCH ×2 (08:12→21:44)
[2022-06-08] MEDS: Apixaban 5 MG TAB PO SCH ×2 (08:12→21:44)
[2022-06-08] MEDS: Loratadine 10 MG TAB PO SCH (08:12)
[2022-06-08] MEDS: Dexamethasone 4 MG TAB PO SCH ×2 (08:12→17:19)
[2022-06-08] MEDS: DULoxetine 30 MG CAP PO SCH (08:13)
[2022-06-08] MEDS: Lubiprostone 24 MCG CAP PO SCH (08:13)
[2022-06-08] MEDS: Fluticasone Propionate Nasal Spray 16 gm Bottle NASAL SCH (08:15)
[2022-06-08] MEDS: Ibuprofen 800 MG TAB PO PRN (11:18)
[2022-06-08] MEDS: Polyethylene Glycol 3350 17 GM Packet PO SCH (21:44)
[2022-06-09] MEDS: Levothyroxine Sodium 50 MCG TAB PO SCH (05:50)
[2022-06-09] MEDS: Acetaminophen/Codeine 30-300mg Tablet PO PRN ×2 (08:29→15:54)
[2022-06-09] MEDS: Dexamethasone 4 MG TAB PO SCH (08:31)
[2022-06-09] MEDS: Tamsulosin HCl 0.4 MG CAP PO SCH (08:31)
[2022-06-09] MEDS: Apixaban 5 MG TAB PO SCH ×2 (08:31→20:32)
[2022-06-09] MEDS: DULoxetine 30 MG CAP PO SCH (08:31)
[2022-06-09] MEDS: Gabapentin 300 MG CAP PO SCH ×2 (08:32→20:32)
[2022-06-09] MEDS: Lubiprostone 24 MCG CAP PO SCH (08:32)
[2022-06-09] MEDS: Loratadine 10 MG TAB PO SCH (08:32)
[2022-06-09] MEDS: Fluticasone Propionate Nasal Spray 16 gm Bottle NASAL SCH (08:33)
[2022-06-09] MEDS: Ibuprofen 800 MG TAB PO PRN (09:22)
[2022-06-09] MEDS: HYDROcodone/Acetaminophen 5/325 mg Tablet PO PRN (12:08)
[2022-06-09] MEDS: Polyethylene Glycol 3350 17 GM Packet PO SCH (20:32)
[2022-06-10] MEDS: Ibuprofen 800 MG TAB PO PRN ×2 (01:30→12:42)
[2022-06-10] MEDS: Levothyroxine Sodium 50 MCG TAB PO SCH (05:10)
[2022-06-10] MEDS: Lubiprostone 24 MCG CAP PO SCH (08:32)
[2022-06-10] MEDS: Apixaban 5 MG TAB PO SCH ×2 (08:32→20:00)
[2022-06-10] MEDS: Gabapentin 300 MG CAP PO SCH ×2 (08:32→20:00)
[2022-06-10] MEDS: Loratadine 10 MG TAB PO SCH (08:32)
[2022-06-10] MEDS: DULoxetine 30 MG CAP PO SCH (08:32)
[2022-06-10] MEDS: Tamsulosin HCl 0.4 MG CAP PO SCH (08:32)
[2022-06-10] MEDS: Dexamethasone 4 MG TAB PO SCH (08:33)
[2022-06-10] MEDS: Fluticasone Propionate Nasal Spray 16 gm Bottle NASAL SCH (08:35)
[2022-06-10] MEDS: HYDROcodone/Acetaminophen 5/325 mg Tablet PO PRN ×2 (10:44→20:00)
[2022-06-10] MEDS: Polyethylene Glycol 3350 17 GM Packet PO SCH (20:00)
[2022-06-11] MEDS: Levothyroxine Sodium 50 MCG TAB PO SCH (05:18)
[2022-06-11] MEDS: Ibuprofen 800 MG TAB PO PRN (09:21)
[2022-06-11] MEDS: Gabapentin 300 MG CAP PO SCH ×2 (09:22→20:43)
[2022-06-11] MEDS: Loratadine 10 MG TAB PO SCH (09:22)
[2022-06-11] MEDS: Lubiprostone 24 MCG CAP PO SCH (09:22)
[2022-06-11] MEDS: DULoxetine 30 MG CAP PO SCH (09:22)
[2022-06-11] MEDS: Tamsulosin HCl 0.4 MG CAP PO SCH (09:23)
[2022-06-11] MEDS: Apixaban 5 MG TAB PO SCH ×2 (09:23→20:43)
[2022-06-11] MEDS: Dexamethasone 4 MG TAB PO SCH (09:23)
[2022-06-11] MEDS: Fluticasone Propionate Nasal Spray 16 gm Bottle NASAL SCH (09:24)
[2022-06-11] MEDS: Acetaminophen/Codeine 30-300mg Tablet PO PRN (11:32)
[2022-06-11] MEDS: Polyethylene Glycol 3350 17 GM Packet PO SCH (20:44)
[2022-06-12] MEDS: Levothyroxine Sodium 50 MCG TAB PO SCH (06:01)
[2022-06-12] MEDS: Dexamethasone 4 MG TAB PO SCH (08:08)
[2022-06-12] MEDS: Apixaban 5 MG TAB PO SCH ×2 (08:08→21:17)
[2022-06-12] MEDS: Lubiprostone 24 MCG CAP PO SCH (08:08)
[2022-06-12] MEDS: Loratadine 10 MG TAB PO SCH (08:08)
[2022-06-12] MEDS: DULoxetine 30 MG CAP PO SCH (08:08)
[2022-06-12] MEDS: Gabapentin 300 MG CAP PO SCH ×2 (08:08→21:17)
[2022-06-12] MEDS: Tamsulosin HCl 0.4 MG CAP PO SCH (08:08)
[2022-06-12] MEDS: Fluticasone Propionate Nasal Spray 16 gm Bottle NASAL SCH (08:10)
[2022-06-12] MEDS: HYDROcodone/Acetaminophen 5/325 mg Tablet PO PRN (09:18)
[2022-06-12] MEDS: Ibuprofen 800 MG TAB PO PRN (11:51)
[2022-06-12] MEDS: Cyclobenzaprine 10 MG TAB PO PRN (13:07)
[2022-06-12] MEDS: Polyethylene Glycol 3350 17 GM Packet PO SCH (21:18)
[2022-06-13] MEDS: Levothyroxine Sodium 50 MCG TAB PO SCH (05:56)
[2022-06-13] MEDS: Ibuprofen 800 MG TAB PO PRN ×2 (06:18→20:25)
[2022-06-13] MEDS: Gabapentin 300 MG CAP PO SCH ×2 (09:00→20:22)
[2022-06-13] MEDS: Tamsulosin HCl 0.4 MG CAP PO SCH (09:00)
[2022-06-13] MEDS: Loratadine 10 MG TAB PO SCH (09:00)
[2022-06-13] MEDS: Lubiprostone 24 MCG CAP PO SCH (09:00)
[2022-06-13] MEDS: Apixaban 5 MG TAB PO SCH ×2 (09:01→20:22)
[2022-06-13] MEDS: Dexamethasone 4 MG TAB PO SCH (09:01)
[2022-06-13] MEDS: DULoxetine 30 MG CAP PO SCH (09:01)
[2022-06-13] MEDS: Fluticasone Propionate Nasal Spray 16 gm Bottle NASAL SCH (09:01)
[2022-06-13] MEDS: Cyclobenzaprine 10 MG TAB PO PRN (11:46)
[2022-06-13] MEDS: Polyethylene Glycol 3350 17 GM Packet PO SCH (20:25)
[2022-06-14] MEDS: Levothyroxine Sodium 50 MCG TAB PO SCH (05:14)
[2022-06-14 06:20] LABS: Hemoglobin 11.4 g/dL (14.0-18.0); Platelet Count 227 thou/uL (130-400)
[2022-06-14] MEDS: Dexamethasone 4 MG TAB PO SCH (09:02)
[2022-06-14] MEDS: Apixaban 5 MG TAB PO SCH ×2 (09:02→20:35)
[2022-06-14] MEDS: Gabapentin 300 MG CAP PO SCH ×2 (09:02→20:34)
[2022-06-14] MEDS: DULoxetine 30 MG CAP PO SCH (09:02)
[2022-06-14] MEDS: Lubiprostone 24 MCG CAP PO SCH (09:02)
[2022-06-14] MEDS: Tamsulosin HCl 0.4 MG CAP PO SCH (09:03)
[2022-06-14] MEDS: Fluticasone Propionate Nasal Spray 16 gm Bottle NASAL SCH (09:03)
[2022-06-14] MEDS: Loratadine 10 MG TAB PO SCH (09:03)
[2022-06-14] MEDS: Cyclobenzaprine 10 MG TAB PO PRN (16:08)
[2022-06-14] MEDS: Polyethylene Glycol 3350 17 GM Packet PO SCH (20:35)
[2022-06-15] MEDS: Levothyroxine Sodium 50 MCG TAB PO SCH (04:58)
[2022-06-15] MEDS: Gabapentin 300 MG CAP PO SCH ×2 (08:40→21:29)
[2022-06-15] MEDS: Dexamethasone 4 MG TAB PO SCH (08:41)
[2022-06-15] MEDS: DULoxetine 30 MG CAP PO SCH (08:41)
[2022-06-15] MEDS: Loratadine 10 MG TAB PO SCH (08:41)
[2022-06-15] MEDS: Tamsulosin HCl 0.4 MG CAP PO SCH (08:41)
[2022-06-15] MEDS: Lubiprostone 24 MCG CAP PO SCH (08:41)
[2022-06-15] MEDS: Apixaban 5 MG TAB PO SCH ×2 (08:41→21:29)
[2022-06-15] MEDS: Fluticasone Propionate Nasal Spray 16 gm Bottle NASAL SCH (08:41)
[2022-06-15] MEDS: HYDROcodone/Acetaminophen 10/325 mg Tablet PO PRN (08:44)
[2022-06-15] MEDS: Cyclobenzaprine 10 MG TAB PO PRN (09:51)
[2022-06-15] MEDS: Polyethylene Glycol 3350 17 GM Packet PO SCH (21:30)
[2022-06-16] MEDS: Levothyroxine Sodium 50 MCG TAB PO SCH (06:26)
[2022-06-16] MEDS: Apixaban 5 MG TAB PO SCH ×2 (09:19→21:23)
[2022-06-16] MEDS: Gabapentin 300 MG CAP PO SCH ×2 (09:19→21:23)
[2022-06-16] MEDS: Tamsulosin HCl 0.4 MG CAP PO SCH (09:19)
[2022-06-16] MEDS: Dexamethasone 4 MG TAB PO SCH (09:19)
[2022-06-16] MEDS: Fluticasone Propionate Nasal Spray 16 gm Bottle NASAL SCH (09:20)
[2022-06-16] MEDS: Lubiprostone 24 MCG CAP PO SCH (09:20)
[2022-06-16] MEDS: DULoxetine 30 MG CAP PO SCH (09:20)
[2022-06-16] MEDS: Loratadine 10 MG TAB PO SCH (09:20)
[2022-06-16] MEDS: HYDROcodone/Acetaminophen 10/325 mg Tablet PO PRN ×2 (09:20→21:31)
[2022-06-16] MEDS: Cyclobenzaprine 10 MG TAB PO PRN ×2 (10:06→23:19)
[2022-06-16] MEDS: Ibuprofen 800 MG TAB PO PRN (15:46)
[2022-06-16] MEDS: Polyethylene Glycol 3350 17 GM Packet PO SCH (21:25)
[2022-06-17] MEDS: Levothyroxine Sodium 50 MCG TAB PO SCH (06:00)
[2022-06-17] MEDS: HYDROcodone/Acetaminophen 10/325 mg Tablet PO PRN (08:52)
[2022-06-17] MEDS: Lubiprostone 24 MCG CAP PO SCH (08:53)
[2022-06-17] MEDS: Tamsulosin HCl 0.4 MG CAP PO SCH (08:53)
[2022-06-17] MEDS: Gabapentin 300 MG CAP PO SCH ×2 (08:53→21:08)
[2022-06-17] MEDS: DULoxetine 30 MG CAP PO SCH (08:54)
[2022-06-17] MEDS: Dexamethasone 4 MG TAB PO SCH (08:54)
[2022-06-17] MEDS: Apixaban 5 MG TAB PO SCH ×2 (08:54→21:08)
[2022-06-17] MEDS: Loratadine 10 MG TAB PO SCH (08:54)
[2022-06-17] MEDS: Fluticasone Propionate Nasal Spray 16 gm Bottle NASAL SCH (08:56)
[2022-06-17] MEDS: Cyclobenzaprine 10 MG TAB PO PRN (15:12)
[2022-06-17] MEDS: Ibuprofen 800 MG TAB PO PRN (17:19)
[2022-06-17] MEDS: Polyethylene Glycol 3350 17 GM Packet PO SCH (21:09)
[2022-06-18 05:28] VITALS: BP 124/77; TEMP 97.6
[2022-06-18] MEDS: Levothyroxine Sodium 50 MCG TAB PO SCH (06:10)
[2022-06-18] MEDS: DULoxetine 30 MG CAP PO SCH (08:10)
[2022-06-18] MEDS: Loratadine 10 MG TAB PO SCH (08:11)
[2022-06-18] MEDS: Gabapentin 300 MG CAP PO SCH (08:11)
[2022-06-18] MEDS: Lubiprostone 24 MCG CAP PO SCH (08:11)
[2022-06-18] MEDS: Tamsulosin HCl 0.4 MG CAP PO SCH (08:12)
[2022-06-18] MEDS: Fluticasone Propionate Nasal Spray 16 gm Bottle NASAL SCH (08:12)
[2022-06-18] MEDS: Apixaban 5 MG TAB PO SCH (08:12)
[2022-06-18] MEDS: Dexamethasone 4 MG TAB PO SCH (08:12)
[2022-06-18] MEDS: Cyclobenzaprine 10 MG TAB PO PRN (08:15)
[2022-06-18] MEDS: Ibuprofen 800 MG TAB PO PRN (10:04)
== END 2022-06-18 11:55 | disposition home or self-care (01) | DRG 560 ==
LOC: BURMED 15:13
PROVIDERS: ADMIT Family Medicine; ATTEND Family Medicine
DX: S72.91XD Unspecified fracture of right femur, subsequent encounter for closed fracture with routine healing (principal); C64.2 Malignant neoplasm of left kidney, except renal pelvis; I82.401 Acute embolism and thrombosis of unspecified deep veins of right lower extremity; E03.9 Hypothyroidism, unspecified; I10 Essential (primary) hypertension; E66.01 Morbid (severe) obesity due to excess calories; R53.1 Weakness; W19.XXXD Unspecified fall, subsequent encounter; Z20.822 Contact with and (suspected) exposure to COVID-19; Z68.36 Body mass index [BMI] 36.0-36.9, adult
CPT/HCPCS: 36415; 80048; 85014; 85018; 85025; 85049; J8540; U0003; U0005

== ENCOUNTER 2022-07-16 12:25 | Inpatient (IN) | payer OTHER ==
[2022-07-16] MEDS ORDERED: Bisacodyl 5 MG TAB PO PRN (20:13)
[2022-07-16] MEDS: Cyclobenzaprine 10 MG TAB PO PRN (21:24)
[2022-07-16] MEDS: Gabapentin 300 MG CAP PO SCH (21:24)
[2022-07-16] MEDS: Apixaban 5 MG TAB PO SCH (21:25)
[2022-07-16] MEDS: Polyethylene Glycol 3350 17 GM Packet PO SCH (21:25)
[2022-07-16] MEDS: Senokot S 8.6-50 MG TAB PO SCH (21:26)
[2022-07-17] MEDS: Levothyroxine Sodium 50 MCG TAB PO SCH (05:38)
[2022-07-17] MEDS: Transdermal Patch Removal TOP SCH (06:02)
[2022-07-17] MEDS ORDERED: Ondansetron ODT 4 MG TAB PO PRN (07:26)
[2022-07-17] MEDS: Senokot S 8.6-50 MG TAB PO SCH ×2 (09:16→19:32)
[2022-07-17] MEDS: Loratadine 10 MG TAB PO SCH (09:16)
[2022-07-17] MEDS: DULoxetine 30 MG CAP PO SCH (09:16)
[2022-07-17] MEDS: Apixaban 5 MG TAB PO SCH ×2 (09:16→20:07)
[2022-07-17] MEDS: Tamsulosin HCl 0.4 MG CAP PO SCH (09:16)
[2022-07-17] MEDS: Gabapentin 300 MG CAP PO SCH ×2 (09:16→20:07)
[2022-07-17] MEDS: Lubiprostone 24 MCG CAP PO SCH (09:17)
[2022-07-17] MEDS: Fluticasone Propionate Nasal Spray 16 gm Bottle NASAL SCH ×2 (09:18→09:21)
[2022-07-17] MEDS: Cyclobenzaprine 10 MG TAB PO PRN (09:31)
[2022-07-17] MEDS: Acetaminophen 325 MG TAB PO PRN (12:53)
[2022-07-17] MEDS: Lidocaine 5% Patch TD SCH (16:50)
[2022-07-17] MEDS: Polyethylene Glycol 3350 17 GM Packet PO SCH (19:32)
[2022-07-18] MEDS: Transdermal Patch Removal TOP SCH (02:32)
[2022-07-18] MEDS: Levothyroxine Sodium 50 MCG TAB PO SCH (05:57)
[2022-07-18] MEDS: HYDROcodone/Acetaminophen 10/325 mg Tablet PO PRN ×2 (06:05→17:44)
[2022-07-18] MEDS: Lubiprostone 24 MCG CAP PO SCH (09:28)
[2022-07-18] MEDS: Gabapentin 300 MG CAP PO SCH ×2 (09:28→20:57)
[2022-07-18] MEDS: DULoxetine 30 MG CAP PO SCH (09:28)
[2022-07-18] MEDS: Tamsulosin HCl 0.4 MG CAP PO SCH (09:29)
[2022-07-18] MEDS: Senokot S 8.6-50 MG TAB PO SCH ×2 (09:29→20:53)
[2022-07-18] MEDS: Apixaban 5 MG TAB PO SCH ×2 (09:29→20:53)
[2022-07-18] MEDS: Fluticasone Propionate Nasal Spray 16 gm Bottle NASAL SCH (09:30)
[2022-07-18] MEDS: Loratadine 10 MG TAB PO SCH (09:30)
[2022-07-18] MEDS: Cyclobenzaprine 10 MG TAB PO PRN (14:47)
[2022-07-18] MEDS: Lidocaine 5% Patch TD SCH (14:48)
[2022-07-18] MEDS: Polyethylene Glycol 3350 17 GM Packet PO SCH (20:52)
[2022-07-19] MEDS: Transdermal Patch Removal TOP SCH (03:17)
[2022-07-19] MEDS: Levothyroxine Sodium 50 MCG TAB PO SCH (05:35)
[2022-07-19] MEDS: Apixaban 5 MG TAB PO SCH ×2 (08:57→20:47)
[2022-07-19] MEDS: Tamsulosin HCl 0.4 MG CAP PO SCH (08:57)
[2022-07-19] MEDS: Lubiprostone 24 MCG CAP PO SCH (08:57)
[2022-07-19] MEDS: DULoxetine 30 MG CAP PO SCH (08:57)
[2022-07-19] MEDS: Senokot S 8.6-50 MG TAB PO SCH ×2 (08:57→20:47)
[2022-07-19] MEDS: Gabapentin 300 MG CAP PO SCH ×2 (08:57→20:47)
[2022-07-19] MEDS: Fluticasone Propionate Nasal Spray 16 gm Bottle NASAL SCH (08:58)
[2022-07-19] MEDS: Loratadine 10 MG TAB PO SCH (08:58)
[2022-07-19] MEDS: Acetaminophen 325 MG TAB PO PRN (09:13)
[2022-07-19] MEDS: HYDROcodone/Acetaminophen 10/325 mg Tablet PO PRN ×2 (12:01→18:37)
[2022-07-19] MEDS: Lidocaine 5% Patch TD SCH (15:02)
[2022-07-19] MEDS: Cyclobenzaprine 10 MG TAB PO PRN (20:47)
[2022-07-19] MEDS: Polyethylene Glycol 3350 17 GM Packet PO SCH (20:51)
[2022-07-20] MEDS: Transdermal Patch Removal TOP SCH (03:30)
[2022-07-20] MEDS: Levothyroxine Sodium 50 MCG TAB PO SCH (05:26)
[2022-07-20] MEDS: Lubiprostone 24 MCG CAP PO SCH (08:50)
[2022-07-20] MEDS: Apixaban 5 MG TAB PO SCH ×2 (08:50→21:30)
[2022-07-20] MEDS: Gabapentin 300 MG CAP PO SCH ×2 (08:50→21:30)
[2022-07-20] MEDS: Fluticasone Propionate Nasal Spray 16 gm Bottle NASAL SCH (08:51)
[2022-07-20] MEDS: Tamsulosin HCl 0.4 MG CAP PO SCH (08:51)
[2022-07-20] MEDS: Loratadine 10 MG TAB PO SCH (08:51)
[2022-07-20] MEDS: DULoxetine 30 MG CAP PO SCH (08:51)
[2022-07-20] MEDS: Senokot S 8.6-50 MG TAB PO SCH ×2 (08:52→21:33)
[2022-07-20] MEDS: HYDROcodone/Acetaminophen 10/325 mg Tablet PO PRN (11:00)
[2022-07-20] MEDS: Lidocaine 5% Patch TD SCH (15:03)
[2022-07-20] MEDS: Cyclobenzaprine 10 MG TAB PO PRN (15:24)
[2022-07-20] MEDS: Polyethylene Glycol 3350 17 GM Packet PO SCH (21:33)
[2022-07-21] MEDS: Transdermal Patch Removal TOP SCH ×2 (03:50→21:49)
[2022-07-21] MEDS: Cyclobenzaprine 10 MG TAB PO PRN ×3 (04:46→20:34)
[2022-07-21] MEDS: Acetaminophen 325 MG TAB PO PRN (04:47)
[2022-07-21] MEDS: Levothyroxine Sodium 50 MCG TAB PO SCH (05:02)
[2022-07-21] MEDS: Gabapentin 300 MG CAP PO SCH ×2 (08:30→20:34)
[2022-07-21] MEDS: Apixaban 5 MG TAB PO SCH ×2 (08:30→20:34)
[2022-07-21] MEDS: Tamsulosin HCl 0.4 MG CAP PO SCH (08:30)
[2022-07-21] MEDS: DULoxetine 30 MG CAP PO SCH (08:30)
[2022-07-21] MEDS: Lubiprostone 24 MCG CAP PO SCH (08:30)
[2022-07-21] MEDS: Loratadine 10 MG TAB PO SCH (08:30)
[2022-07-21] MEDS: Senokot S 8.6-50 MG TAB PO SCH ×2 (08:31→20:32)
[2022-07-21] MEDS: Fluticasone Propionate Nasal Spray 16 gm Bottle NASAL SCH (08:31)
[2022-07-21] MEDS: HYDROcodone/Acetaminophen 10/325 mg Tablet PO PRN ×2 (11:23→17:04)
[2022-07-21] MEDS: Lidocaine 5% Patch TD SCH (14:53)
[2022-07-21] MEDS: Polyethylene Glycol 3350 17 GM Packet PO SCH (20:32)
[2022-07-21] MEDS: [UNRECOGNIZED DRUG - OTHER] PO SCH (21:24)
[2022-07-22] MEDS: Levothyroxine Sodium 50 MCG TAB PO SCH (05:02)
[2022-07-22 05:20] LABS: Anion Gap 13 mmol/L (10-20); BUN (Urea Nitrogen) 6 mg/dL (8.4-25.7); Calc. Creatinine Clearance 292 mL/min (70-130); Calcium 8.3 mg/dL (7.8-10.44); Carbon Dioxide 25 mmol/L (22-29); Chloride 105 mmol/L (98-107); Estimated GFR 112; Glucose 109 mg/dL (70-105); Potassium 4.2 mmol/L (3.5-5.1); Sodium 139 mmol/L (136-145)
[2022-07-22] MEDS: HYDROcodone/Acetaminophen 10/325 mg Tablet PO PRN ×3 (09:10→21:00)
[2022-07-22] MEDS: Apixaban 5 MG TAB PO SCH ×2 (09:11→20:07)
[2022-07-22] MEDS: Gabapentin 300 MG CAP PO SCH ×2 (09:11→20:06)
[2022-07-22] MEDS: Tamsulosin HCl 0.4 MG CAP PO SCH (09:11)
[2022-07-22] MEDS: Lubiprostone 24 MCG CAP PO SCH (09:12)
[2022-07-22] MEDS: DULoxetine 30 MG CAP PO SCH (09:12)
[2022-07-22] MEDS: Loratadine 10 MG TAB PO SCH (09:12)
[2022-07-22] MEDS: Fluticasone Propionate Nasal Spray 16 gm Bottle NASAL SCH (09:13)
[2022-07-22] MEDS: Senokot S 8.6-50 MG TAB PO SCH ×2 (09:15→20:07)
[2022-07-22] MEDS: Lidocaine 5% Patch TD SCH (15:01)
[2022-07-22] MEDS: Cyclobenzaprine 10 MG TAB PO PRN (17:37)
[2022-07-22] MEDS: Polyethylene Glycol 3350 17 GM Packet PO SCH (20:07)
[2022-07-22] MEDS: [UNRECOGNIZED DRUG - OTHER] PO SCH (21:01)
[2022-07-23] MEDS: Transdermal Patch Removal TOP SCH (03:48)
[2022-07-23] MEDS: Levothyroxine Sodium 50 MCG TAB PO SCH (05:00)
[2022-07-23] MEDS: Cyclobenzaprine 10 MG TAB PO PRN (05:01)
[2022-07-23 05:59] LABS: Hemoglobin 8.2 g/dL (14.0-18.0); Platelet Count 500 thou/uL (130-400)
[2022-07-23] MEDS: Senokot S 8.6-50 MG TAB PO SCH ×2 (09:34→21:04)
[2022-07-23] MEDS: Lubiprostone 24 MCG CAP PO SCH (09:34)
[2022-07-23] MEDS: DULoxetine 30 MG CAP PO SCH (09:34)
[2022-07-23] MEDS: Apixaban 5 MG TAB PO SCH ×2 (09:35→21:04)
[2022-07-23] MEDS: Tamsulosin HCl 0.4 MG CAP PO SCH (09:35)
[2022-07-23] MEDS: Gabapentin 300 MG CAP PO SCH ×2 (09:35→21:03)
[2022-07-23] MEDS: Loratadine 10 MG TAB PO SCH (09:36)
[2022-07-23] MEDS: Fluticasone Propionate Nasal Spray 16 gm Bottle NASAL SCH (09:37)
[2022-07-23] MEDS: HYDROcodone/Acetaminophen 10/325 mg Tablet PO PRN (16:09)
[2022-07-23] MEDS: Lidocaine 5% Patch TD SCH (16:13)
[2022-07-23] MEDS: Polyethylene Glycol 3350 17 GM Packet PO SCH (21:03)
[2022-07-23] MEDS: [UNRECOGNIZED DRUG - OTHER] PO SCH (21:05)
[2022-07-24] MEDS: Cyclobenzaprine 10 MG TAB PO PRN ×2 (00:03→15:30)
[2022-07-24] MEDS: Transdermal Patch Removal TOP SCH (03:58)
[2022-07-24] MEDS: Levothyroxine Sodium 50 MCG TAB PO SCH (05:33)
[2022-07-24] MEDS: Lubiprostone 24 MCG CAP PO SCH (08:17)
[2022-07-24] MEDS: Gabapentin 300 MG CAP PO SCH ×2 (08:18→20:29)
[2022-07-24] MEDS: DULoxetine 30 MG CAP PO SCH (08:18)
[2022-07-24] MEDS: Tamsulosin HCl 0.4 MG CAP PO SCH (08:18)
[2022-07-24] MEDS: Apixaban 5 MG TAB PO SCH ×2 (08:19→20:31)
[2022-07-24] MEDS: Loratadine 10 MG TAB PO SCH (08:19)
[2022-07-24] MEDS: Senokot S 8.6-50 MG TAB PO SCH ×2 (08:20→20:31)
[2022-07-24] MEDS: Fluticasone Propionate Nasal Spray 16 gm Bottle NASAL SCH (08:20)
[2022-07-24] MEDS: HYDROcodone/Acetaminophen 10/325 mg Tablet PO PRN (11:20)
[2022-07-24] MEDS: Lidocaine 5% Patch TD SCH (13:01)
[2022-07-24] MEDS: [UNRECOGNIZED DRUG - OTHER] PO SCH (20:31)
[2022-07-24] MEDS: Polyethylene Glycol 3350 17 GM Packet PO SCH (20:31)
[2022-07-24] MEDS: Acetaminophen 325 MG TAB PO PRN (20:44)
[2022-07-25] MEDS: Transdermal Patch Removal TOP SCH (03:39)
[2022-07-25] MEDS: Levothyroxine Sodium 50 MCG TAB PO SCH (05:33)
[2022-07-25] MEDS: Tamsulosin HCl 0.4 MG CAP PO SCH (09:13)
[2022-07-25] MEDS: Gabapentin 300 MG CAP PO SCH ×2 (09:13→20:53)
[2022-07-25] MEDS: Lubiprostone 24 MCG CAP PO SCH (09:14)
[2022-07-25] MEDS: Senokot S 8.6-50 MG TAB PO SCH ×2 (09:15→20:55)
[2022-07-25] MEDS: DULoxetine 30 MG CAP PO SCH (09:16)
[2022-07-25] MEDS: Apixaban 5 MG TAB PO SCH ×2 (09:16→20:54)
[2022-07-25] MEDS: Fluticasone Propionate Nasal Spray 16 gm Bottle NASAL SCH (09:18)
[2022-07-25] MEDS: Loratadine 10 MG TAB PO SCH (09:18)
[2022-07-25] MEDS: Acetaminophen 325 MG TAB PO PRN (09:19)
[2022-07-25] MEDS: Lidocaine 5% Patch TD SCH (14:03)
[2022-07-25] MEDS: [UNRECOGNIZED DRUG - OTHER] PO SCH (20:53)
[2022-07-25] MEDS: Polyethylene Glycol 3350 17 GM Packet PO SCH (20:55)
[2022-07-26] MEDS: Acetaminophen 325 MG TAB PO PRN (04:34)
[2022-07-26] MEDS: Levothyroxine Sodium 50 MCG TAB PO SCH (04:35)
[2022-07-26] MEDS: Transdermal Patch Removal TOP SCH (04:52)
[2022-07-26] MEDS: Loratadine 10 MG TAB PO SCH (09:12)
[2022-07-26] MEDS: Apixaban 5 MG TAB PO SCH ×2 (09:12→20:46)
[2022-07-26] MEDS: Tamsulosin HCl 0.4 MG CAP PO SCH (09:12)
[2022-07-26] MEDS: Lubiprostone 24 MCG CAP PO SCH (09:12)
[2022-07-26] MEDS: Gabapentin 300 MG CAP PO SCH ×2 (09:13→20:45)
[2022-07-26] MEDS: Senokot S 8.6-50 MG TAB PO SCH ×2 (09:14→20:46)
[2022-07-26] MEDS: Fluticasone Propionate Nasal Spray 16 gm Bottle NASAL SCH (09:14)
[2022-07-26] MEDS: DULoxetine 30 MG CAP PO SCH (09:14)
[2022-07-26] MEDS: HYDROcodone/Acetaminophen 10/325 mg Tablet PO PRN (13:59)
[2022-07-26] MEDS: Lidocaine 5% Patch TD SCH (14:00)
[2022-07-26] MEDS: Polyethylene Glycol 3350 17 GM Packet PO SCH (20:47)
[2022-07-26] MEDS: [UNRECOGNIZED DRUG - OTHER] PO SCH (20:48)
[2022-07-27] MEDS: Transdermal Patch Removal TOP SCH (05:14)
[2022-07-27] MEDS: Levothyroxine Sodium 50 MCG TAB PO SCH (05:14)
[2022-07-27] MEDS: Gabapentin 300 MG CAP PO SCH ×2 (08:05→21:01)
[2022-07-27] MEDS: Lubiprostone 24 MCG CAP PO SCH (08:05)
[2022-07-27] MEDS: DULoxetine 30 MG CAP PO SCH (08:06)
[2022-07-27] MEDS: Senokot S 8.6-50 MG TAB PO SCH ×2 (08:06→21:00)
[2022-07-27] MEDS: Fluticasone Propionate Nasal Spray 16 gm Bottle NASAL SCH (08:06)
[2022-07-27] MEDS: Apixaban 5 MG TAB PO SCH ×2 (08:06→21:02)
[2022-07-27] MEDS: Loratadine 10 MG TAB PO SCH (08:06)
[2022-07-27] MEDS: Tamsulosin HCl 0.4 MG CAP PO SCH (08:06)
[2022-07-27] MEDS: Hydrocortisone 1% Cream 30 GM TUBE TOP SCH ×2 (08:06→21:02)
[2022-07-27] MEDS: HYDROcodone/Acetaminophen 10/325 mg Tablet PO PRN ×2 (09:24→22:05)
[2022-07-27] MEDS: Aluminum & Magnesium Hydroxide 60 ML, Lidocaine 2% Viscous Solution 30 ML, diphenhydrAM... SSW PRN (09:25)
[2022-07-27] MEDS: Cyclobenzaprine 10 MG TAB PO PRN (14:14)
[2022-07-27] MEDS: Lidocaine 5% Patch TD SCH (14:15)
[2022-07-27] MEDS: Polyethylene Glycol 3350 17 GM Packet PO SCH (21:02)
[2022-07-27] MEDS: [UNRECOGNIZED DRUG - OTHER] PO SCH (22:11)
[2022-07-28] MEDS: Transdermal Patch Removal TOP SCH (03:00)
[2022-07-28] MEDS: Levothyroxine Sodium 50 MCG TAB PO SCH (05:10)
[2022-07-28] MEDS: Tamsulosin HCl 0.4 MG CAP PO SCH (09:35)
[2022-07-28] MEDS: Gabapentin 300 MG CAP PO SCH ×2 (09:35→21:03)
[2022-07-28] MEDS: Lubiprostone 24 MCG CAP PO SCH (09:35)
[2022-07-28] MEDS: Senokot S 8.6-50 MG TAB PO SCH ×2 (09:35→21:03)
[2022-07-28] MEDS: DULoxetine 30 MG CAP PO SCH (09:35)
[2022-07-28] MEDS: Loratadine 10 MG TAB PO SCH (09:35)
[2022-07-28] MEDS: Apixaban 5 MG TAB PO SCH ×2 (09:35→21:04)
[2022-07-28] MEDS: Fluticasone Propionate Nasal Spray 16 gm Bottle NASAL SCH (09:36)
[2022-07-28] MEDS: HYDROcodone/Acetaminophen 10/325 mg Tablet PO PRN (09:41)
[2022-07-28] MEDS: Hydrocortisone 1% Cream 30 GM TUBE TOP SCH ×2 (09:49→21:05)
[2022-07-28] MEDS: Lidocaine 5% Patch TD SCH (14:38)
[2022-07-28] MEDS: Polyethylene Glycol 3350 17 GM Packet PO SCH (21:02)
[2022-07-28] MEDS: CABOMETYX 60 MG PO SCH (21:02)
[2022-07-29] MEDS: Transdermal Patch Removal TOP SCH (03:24)
[2022-07-29] MEDS: Levothyroxine Sodium 50 MCG TAB PO SCH (05:21)
[2022-07-29 05:37] LABS: Anion Gap 16 mmol/L (10-20); BUN (Urea Nitrogen) 6 mg/dL (8.4-25.7); Calc. Creatinine Clearance 260 mL/min (70-130); Calcium 8.4 mg/dL (7.8-10.44); Carbon Dioxide 27 mmol/L (22-29); Chloride 101 mmol/L (98-107); Estimated GFR 108; Glucose 102 mg/dL (70-105); Potassium 4.1 mmol/L (3.5-5.1); Sodium 140 mmol/L (136-145)
[2022-07-29] MEDS: HYDROcodone/Acetaminophen 10/325 mg Tablet PO PRN (09:18)
[2022-07-29] MEDS: Gabapentin 300 MG CAP PO SCH ×2 (09:19→21:01)
[2022-07-29] MEDS: Apixaban 5 MG TAB PO SCH ×2 (09:20→21:02)
[2022-07-29] MEDS: Lubiprostone 24 MCG CAP PO SCH (09:20)
[2022-07-29] MEDS: Loratadine 10 MG TAB PO SCH (09:20)
[2022-07-29] MEDS: Senokot S 8.6-50 MG TAB PO SCH ×2 (09:20→21:01)
[2022-07-29] MEDS: DULoxetine 30 MG CAP PO SCH (09:20)
[2022-07-29] MEDS: Tamsulosin HCl 0.4 MG CAP PO SCH (09:20)
[2022-07-29] MEDS: Fluticasone Propionate Nasal Spray 16 gm Bottle NASAL SCH (09:21)
[2022-07-29] MEDS: Hydrocortisone 1% Cream 30 GM TUBE TOP SCH ×2 (09:23→21:02)
[2022-07-29] MEDS: Lidocaine 5% Patch TD SCH (15:30)
[2022-07-29] MEDS: Polyethylene Glycol 3350 17 GM Packet PO SCH (20:59)
[2022-07-29] MEDS: CABOMETYX 60 MG PO SCH (21:00)
[2022-07-30] MEDS: Levothyroxine Sodium 50 MCG TAB PO SCH (05:28)
[2022-07-30] MEDS: Transdermal Patch Removal TOP SCH (05:32)
[2022-07-30 05:42] LABS: Hemoglobin 8.7 g/dL (14.0-18.0); Platelet Count 389 thou/uL (130-400)
[2022-07-30] MEDS: Gabapentin 300 MG CAP PO SCH ×2 (10:30→21:14)
[2022-07-30] MEDS: Tamsulosin HCl 0.4 MG CAP PO SCH (10:31)
[2022-07-30] MEDS: Apixaban 5 MG TAB PO SCH ×2 (10:31→21:14)
[2022-07-30] MEDS: Loratadine 10 MG TAB PO SCH (10:31)
[2022-07-30] MEDS: DULoxetine 30 MG CAP PO SCH (10:31)
[2022-07-30] MEDS: Hydrocortisone 1% Cream 30 GM TUBE TOP SCH ×2 (10:32→21:15)
[2022-07-30] MEDS: Lubiprostone 24 MCG CAP PO SCH (10:32)
[2022-07-30] MEDS: Fluticasone Propionate Nasal Spray 16 gm Bottle NASAL SCH (10:32)
[2022-07-30] MEDS: Senokot S 8.6-50 MG TAB PO SCH ×2 (10:32→21:14)
[2022-07-30] MEDS: Acetaminophen 325 MG TAB PO PRN (10:35)
[2022-07-30] MEDS: HYDROcodone/Acetaminophen 10/325 mg Tablet PO PRN (12:52)
[2022-07-30] MEDS: Lidocaine 5% Patch TD SCH (15:09)
[2022-07-30] MEDS: Cyclobenzaprine 10 MG TAB PO PRN (15:49)
[2022-07-30] MEDS: fentaNYL 50 mcg/hour Patch TD SCH (17:02)
[2022-07-30] MEDS: Polyethylene Glycol 3350 17 GM Packet PO SCH (21:14)
[2022-07-30] MEDS: CABOMETYX 60 MG PO SCH (21:14)
[2022-07-31] MEDS: Levothyroxine Sodium 50 MCG TAB PO SCH (04:57)
[2022-07-31] MEDS: Transdermal Patch Removal TOP SCH (04:58)
[2022-07-31] MEDS: Lubiprostone 24 MCG CAP PO SCH (08:24)
[2022-07-31] MEDS: Senokot S 8.6-50 MG TAB PO SCH ×2 (08:25→21:59)
[2022-07-31] MEDS: Gabapentin 300 MG CAP PO SCH ×2 (08:25→21:41)
[2022-07-31] MEDS: Fluticasone Propionate Nasal Spray 16 gm Bottle NASAL SCH (08:26)
[2022-07-31] MEDS: DULoxetine 30 MG CAP PO SCH (08:26)
[2022-07-31] MEDS: Apixaban 5 MG TAB PO SCH ×2 (08:26→21:41)
[2022-07-31] MEDS: Tamsulosin HCl 0.4 MG CAP PO SCH (08:26)
[2022-07-31] MEDS: Hydrocortisone 1% Cream 30 GM TUBE TOP SCH ×2 (09:00→21:42)
[2022-07-31] MEDS: Loratadine 10 MG TAB PO SCH (09:00)
[2022-07-31] MEDS: HYDROcodone/Acetaminophen 10/325 mg Tablet PO PRN (10:26)
[2022-07-31] MEDS: Lidocaine 5% Patch TD SCH (14:59)
[2022-07-31] MEDS: Cyclobenzaprine 10 MG TAB PO PRN ×2 (15:01→21:40)
[2022-07-31] MEDS: Polyethylene Glycol 3350 17 GM Packet PO SCH (21:40)
[2022-07-31] MEDS: CABOMETYX 60 MG PO SCH (21:41)
[2022-08-01] MEDS: Transdermal Patch Removal TOP SCH (03:30)
[2022-08-01] MEDS: Levothyroxine Sodium 50 MCG TAB PO SCH (06:00)
[2022-08-01] MEDS: Lubiprostone 24 MCG CAP PO SCH (08:56)
[2022-08-01] MEDS: Tamsulosin HCl 0.4 MG CAP PO SCH (08:56)
[2022-08-01] MEDS: Senokot S 8.6-50 MG TAB PO SCH ×2 (08:56→20:58)
[2022-08-01] MEDS: Loratadine 10 MG TAB PO SCH (08:56)
[2022-08-01] MEDS: DULoxetine 30 MG CAP PO SCH (08:56)
[2022-08-01] MEDS: Fluticasone Propionate Nasal Spray 16 gm Bottle NASAL SCH (08:57)
[2022-08-01] MEDS: Apixaban 5 MG TAB PO SCH ×2 (08:57→20:55)
[2022-08-01] MEDS: Hydrocortisone 1% Cream 30 GM TUBE TOP SCH ×2 (08:57→20:58)
[2022-08-01] MEDS: Gabapentin 300 MG CAP PO SCH ×2 (08:57→20:55)
[2022-08-01] MEDS: Acetaminophen 325 MG TAB PO PRN (09:19)
[2022-08-01] MEDS: Lidocaine 5% Patch TD SCH (14:59)
[2022-08-01] MEDS: Polyethylene Glycol 3350 17 GM Packet PO SCH (20:53)
[2022-08-01] MEDS: CABOMETYX 60 MG PO SCH (20:55)
[2022-08-01] MEDS: Cyclobenzaprine 10 MG TAB PO PRN (20:55)
[2022-08-02] MEDS: Transdermal Patch Removal TOP SCH (03:51)
[2022-08-02] MEDS: Levothyroxine Sodium 50 MCG TAB PO SCH (05:58)
[2022-08-02] MEDS: Senokot S 8.6-50 MG TAB PO SCH ×2 (08:15→20:34)
[2022-08-02] MEDS: Apixaban 5 MG TAB PO SCH ×2 (08:16→20:35)
[2022-08-02] MEDS: Loratadine 10 MG TAB PO SCH (08:16)
[2022-08-02] MEDS: DULoxetine 30 MG CAP PO SCH (08:16)
[2022-08-02] MEDS: Cyclobenzaprine 10 MG TAB PO PRN (08:16)
[2022-08-02] MEDS: Lubiprostone 24 MCG CAP PO SCH (08:16)
[2022-08-02] MEDS: Hydrocortisone 1% Cream 30 GM TUBE TOP SCH ×2 (08:16→20:33)
[2022-08-02] MEDS: Gabapentin 300 MG CAP PO SCH ×2 (08:16→20:29)
[2022-08-02] MEDS: Tamsulosin HCl 0.4 MG CAP PO SCH (08:19)
[2022-08-02] MEDS: Fluticasone Propionate Nasal Spray 16 gm Bottle NASAL SCH (08:19)
[2022-08-02] MEDS: Lidocaine 5% Patch TD SCH (14:50)
[2022-08-02] MEDS: HYDROcodone/Acetaminophen 10/325 mg Tablet PO PRN ×2 (14:50→20:30)
[2022-08-02] MEDS: fentaNYL 50 mcg/hour Patch TD SCH (17:11)
[2022-08-02] MEDS: Polyethylene Glycol 3350 17 GM Packet PO SCH (20:27)
[2022-08-02] MEDS: CABOMETYX 60 MG PO SCH (20:28)
[2022-08-03] MEDS: Transdermal Patch Removal TOP SCH ×2 (03:19→22:42)
[2022-08-03] MEDS: Levothyroxine Sodium 50 MCG TAB PO SCH (05:04)
[2022-08-03] MEDS: Aluminum & Magnesium Hydroxide 60 ML, Lidocaine 2% Viscous Solution 30 ML, diphenhydrAM... SSW PRN (07:31)
[2022-08-03] MEDS: Lubiprostone 24 MCG CAP PO SCH (08:51)
[2022-08-03] MEDS: Gabapentin 300 MG CAP PO SCH ×2 (08:51→21:01)
[2022-08-03] MEDS: Apixaban 5 MG TAB PO SCH ×2 (08:52→21:01)
[2022-08-03] MEDS: Tamsulosin HCl 0.4 MG CAP PO SCH (08:52)
[2022-08-03] MEDS: DULoxetine 30 MG CAP PO SCH (08:52)
[2022-08-03] MEDS: Loratadine 10 MG TAB PO SCH (08:52)
[2022-08-03] MEDS: Senokot S 8.6-50 MG TAB PO SCH ×2 (08:53→21:02)
[2022-08-03] MEDS: Fluticasone Propionate Nasal Spray 16 gm Bottle NASAL SCH (08:53)
[2022-08-03] MEDS: HYDROcodone/Acetaminophen 10/325 mg Tablet PO PRN (09:03)
[2022-08-03] MEDS: Hydrocortisone 1% Cream 30 GM TUBE TOP SCH ×2 (10:48→21:02)
[2022-08-03] MEDS: Lidocaine 5% Patch TD SCH (14:27)
[2022-08-03] MEDS: Polyethylene Glycol 3350 17 GM Packet PO SCH (21:01)
[2022-08-03] MEDS: CABOMETYX 60 MG PO SCH (21:01)
[2022-08-04] MEDS: Levothyroxine Sodium 50 MCG TAB PO SCH (05:35)
[2022-08-04] MEDS: Gabapentin 300 MG CAP PO SCH ×2 (08:55→20:41)
[2022-08-04] MEDS: Lubiprostone 24 MCG CAP PO SCH (08:55)
[2022-08-04] MEDS: Hydrocortisone 1% Cream 30 GM TUBE TOP SCH ×2 (08:55→20:43)
[2022-08-04] MEDS: Tamsulosin HCl 0.4 MG CAP PO SCH (08:55)
[2022-08-04] MEDS: Loratadine 10 MG TAB PO SCH (08:55)
[2022-08-04] MEDS: Apixaban 5 MG TAB PO SCH ×2 (08:55→20:41)
[2022-08-04] MEDS: Senokot S 8.6-50 MG TAB PO SCH ×2 (08:56→20:46)
[2022-08-04] MEDS: Fluticasone Propionate Nasal Spray 16 gm Bottle NASAL SCH (08:56)
[2022-08-04] MEDS: DULoxetine 30 MG CAP PO SCH (08:56)
[2022-08-04] MEDS: HYDROcodone/Acetaminophen 10/325 mg Tablet PO PRN (14:15)
[2022-08-04] MEDS: Lidocaine 5% Patch TD SCH (14:47)
[2022-08-04] MEDS: CABOMETYX 60 MG PO SCH (20:40)
[2022-08-04] MEDS: Polyethylene Glycol 3350 17 GM Packet PO SCH (20:40)
[2022-08-05] MEDS: Transdermal Patch Removal TOP SCH (00:10)
[2022-08-05] MEDS: Levothyroxine Sodium 50 MCG TAB PO SCH (05:12)
[2022-08-05 06:00] LABS: Anion Gap 14 mmol/L (10-20); BUN (Urea Nitrogen) 5 mg/dL (8.4-25.7); Calc. Creatinine Clearance 269 mL/min (70-130); Calcium 8.9 mg/dL (7.8-10.44); Carbon Dioxide 29 mmol/L (22-29); Chloride 100 mmol/L (98-107); Estimated GFR 112; Glucose 90 mg/dL (70-105); Potassium 4.4 mmol/L (3.5-5.1); Sodium 139 mmol/L (136-145)
[2022-08-05] MEDS: Hydrocortisone 1% Cream 30 GM TUBE TOP SCH ×2 (09:14→21:46)
[2022-08-05] MEDS: Tamsulosin HCl 0.4 MG CAP PO SCH (09:22)
[2022-08-05] MEDS: Lubiprostone 24 MCG CAP PO SCH (09:22)
[2022-08-05] MEDS: DULoxetine 30 MG CAP PO SCH (09:22)
[2022-08-05] MEDS: Loratadine 10 MG TAB PO SCH (09:23)
[2022-08-05] MEDS: Apixaban 5 MG TAB PO SCH ×2 (09:23→21:47)
[2022-08-05] MEDS: Senokot S 8.6-50 MG TAB PO SCH ×2 (09:23→21:49)
[2022-08-05] MEDS: Gabapentin 300 MG CAP PO SCH ×2 (09:23→21:47)
[2022-08-05] MEDS: Fluticasone Propionate Nasal Spray 16 gm Bottle NASAL SCH (09:24)
[2022-08-05] MEDS: Cyclobenzaprine 10 MG TAB PO PRN (09:26)
[2022-08-05] MEDS: HYDROcodone/Acetaminophen 10/325 mg Tablet PO PRN (12:12)
[2022-08-05] MEDS: fentaNYL 50 mcg/hour Patch TD SCH (16:59)
[2022-08-05] MEDS: Lidocaine 5% Patch TD SCH (17:09)
[2022-08-05] MEDS: Acetaminophen 325 MG TAB PO PRN (17:16)
[2022-08-05 20:36] VITALS: BMI 45.9
[2022-08-05] MEDS: Polyethylene Glycol 3350 17 GM Packet PO SCH (21:47)
[2022-08-05] MEDS: CABOMETYX 60 MG PO SCH (21:48)
[2022-08-06] MEDS: Transdermal Patch Removal TOP SCH (05:27)
[2022-08-06] MEDS: Levothyroxine Sodium 50 MCG TAB PO SCH (05:27)
[2022-08-06] MEDS: Lubiprostone 24 MCG CAP PO SCH (08:29)
[2022-08-06] MEDS: Gabapentin 300 MG CAP PO SCH ×2 (08:29→21:34)
[2022-08-06] MEDS: Senokot S 8.6-50 MG TAB PO SCH ×2 (08:29→21:34)
[2022-08-06] MEDS: Tamsulosin HCl 0.4 MG CAP PO SCH (08:30)
[2022-08-06] MEDS: Apixaban 5 MG TAB PO SCH ×2 (08:31→21:34)
[2022-08-06] MEDS: Loratadine 10 MG TAB PO SCH (08:31)
[2022-08-06] MEDS: Fluticasone Propionate Nasal Spray 16 gm Bottle NASAL SCH (08:31)
[2022-08-06] MEDS: DULoxetine 30 MG CAP PO SCH (08:31)
[2022-08-06] MEDS: Hydrocortisone 1% Cream 30 GM TUBE TOP SCH ×2 (08:36→21:39)
[2022-08-06] MEDS ORDERED: Azithromycin 250 MG TAB PO SCH ×2 (09:00)
[2022-08-06] MEDS: Cyclobenzaprine 10 MG TAB PO PRN (11:16)
[2022-08-06] MEDS: Lidocaine 5% Patch TD SCH (16:55)
[2022-08-06] MEDS: HYDROcodone/Acetaminophen 10/325 mg Tablet PO PRN (17:01)
[2022-08-06] MEDS: CABOMETYX 60 MG PO SCH (21:33)
[2022-08-06] MEDS: Polyethylene Glycol 3350 17 GM Packet PO SCH (21:34)
[2022-08-07 04:55] LABS: Hemoglobin 9.3 g/dL (14.0-18.0); Platelet Count 271 thou/uL (130-400)
[2022-08-07] MEDS: Levothyroxine Sodium 50 MCG TAB PO SCH (05:37)
[2022-08-07] MEDS: Transdermal Patch Removal TOP SCH (05:38)
[2022-08-07] MEDS: Tamsulosin HCl 0.4 MG CAP PO SCH (09:09)
[2022-08-07] MEDS: Azithromycin 250 MG TAB PO SCH (09:09)
[2022-08-07] MEDS: DULoxetine 30 MG CAP PO SCH (09:09)
[2022-08-07] MEDS: Gabapentin 300 MG CAP PO SCH ×2 (09:09→21:24)
[2022-08-07] MEDS: Loratadine 10 MG TAB PO SCH (09:10)
[2022-08-07] MEDS: Apixaban 5 MG TAB PO SCH ×2 (09:10→21:24)
[2022-08-07] MEDS: Lubiprostone 24 MCG CAP PO SCH (09:11)
[2022-08-07] MEDS: Senokot S 8.6-50 MG TAB PO SCH ×2 (09:12→21:24)
[2022-08-07] MEDS: Hydrocortisone 1% Cream 30 GM TUBE TOP SCH ×2 (09:13→21:26)
[2022-08-07] MEDS: Fluticasone Propionate Nasal Spray 16 gm Bottle NASAL SCH (09:13)
[2022-08-07] MEDS: HYDROcodone/Acetaminophen 10/325 mg Tablet PO PRN (11:11)
[2022-08-07] MEDS: Lidocaine 5% Patch TD SCH (15:32)
[2022-08-07] MEDS: CABOMETYX 60 MG PO SCH (21:24)
[2022-08-07] MEDS: Polyethylene Glycol 3350 17 GM Packet PO SCH (21:24)
[2022-08-08] MEDS: Transdermal Patch Removal TOP SCH (05:38)
[2022-08-08] MEDS: Levothyroxine Sodium 50 MCG TAB PO SCH (05:38)
[2022-08-08] MEDS: Tamsulosin HCl 0.4 MG CAP PO SCH (09:16)
[2022-08-08] MEDS: Lubiprostone 24 MCG CAP PO SCH (09:16)
[2022-08-08] MEDS: Gabapentin 300 MG CAP PO SCH ×2 (09:17→20:59)
[2022-08-08] MEDS: Azithromycin 250 MG TAB PO SCH (09:18)
[2022-08-08] MEDS: DULoxetine 30 MG CAP PO SCH (09:18)
[2022-08-08] MEDS: Loratadine 10 MG TAB PO SCH (09:20)
[2022-08-08] MEDS: Senokot S 8.6-50 MG TAB PO SCH ×2 (09:20→20:59)
[2022-08-08] MEDS: Apixaban 5 MG TAB PO SCH ×2 (09:20→20:59)
[2022-08-08] MEDS: Hydrocortisone 1% Cream 30 GM TUBE TOP SCH ×2 (09:21→20:58)
[2022-08-08] MEDS: Fluticasone Propionate Nasal Spray 16 gm Bottle NASAL SCH (09:22)
[2022-08-08] MEDS: Lidocaine 5% Patch TD SCH (15:52)
[2022-08-08] MEDS: HYDROcodone/Acetaminophen 10/325 mg Tablet PO PRN (16:39)
[2022-08-08] MEDS: fentaNYL 50 mcg/hour Patch TD SCH (18:02)
[2022-08-08] MEDS: Polyethylene Glycol 3350 17 GM Packet PO SCH (20:58)
[2022-08-08] MEDS: CABOMETYX 60 MG PO SCH (21:01)
[2022-08-09] MEDS: Transdermal Patch Removal TOP SCH (02:54)
[2022-08-09] MEDS: Levothyroxine Sodium 50 MCG TAB PO SCH (05:27)
[2022-08-09 06:05] VITALS: BP 123/52; TEMP 97.9
[2022-08-09] MEDS: Azithromycin 250 MG TAB PO SCH (09:01)
[2022-08-09] MEDS: DULoxetine 30 MG CAP PO SCH (09:02)
[2022-08-09] MEDS: Lubiprostone 24 MCG CAP PO SCH (09:02)
[2022-08-09] MEDS: Senokot S 8.6-50 MG TAB PO SCH (09:02)
[2022-08-09] MEDS: Gabapentin 300 MG CAP PO SCH (09:03)
[2022-08-09] MEDS: Tamsulosin HCl 0.4 MG CAP PO SCH (09:05)
[2022-08-09] MEDS: Loratadine 10 MG TAB PO SCH (09:05)
[2022-08-09] MEDS: Apixaban 5 MG TAB PO SCH (09:05)
[2022-08-09] MEDS: Hydrocortisone 1% Cream 30 GM TUBE TOP SCH (09:05)
[2022-08-09] MEDS: Fluticasone Propionate Nasal Spray 16 gm Bottle NASAL SCH (09:06)
== END 2022-08-09 12:00 | disposition home or self-care (01) | DRG 948 ==
LOC: BURMED 18:05
PROVIDERS: ADMIT Family Medicine; ATTEND Family Medicine
DX: R53.1 Weakness (principal); Z68.42 Body mass index [BMI] 45.0-49.9, adult; C64.9 Malignant neoplasm of unspecified kidney, except renal pelvis; C79.9 Secondary malignant neoplasm of unspecified site; G89.4 Chronic pain syndrome; K59.00 Constipation, unspecified; E03.9 Hypothyroidism, unspecified; I10 Essential (primary) hypertension; G47.33 Obstructive sleep apnea (adult) (pediatric); M19.90 Unspecified osteoarthritis, unspecified site; N40.0 Benign prostatic hyperplasia without lower urinary tract symptoms; E66.01 Morbid (severe) obesity due to excess calories; Z96.653 Presence of artificial knee joint, bilateral; E83.52 Hypercalcemia; F32.A Depression, unspecified; R21 Rash and other nonspecific skin eruption; Z86.718 Personal history of other venous thrombosis and embolism; Z79.01 Long term (current) use of anticoagulants; Z88.0 Allergy status to penicillin; Z79.899 Other long term (current) drug therapy
CPT/HCPCS: 36415; 80048; 82565; 85014; 85018; 85049; 87811

== ENCOUNTER 2022-08-14 10:13 | Outpatient (CLI) | payer OTHER ==
[2022-08-14 10:38] LABS: #Basophils 0.1 thou/uL (0.0-0.2); #Eosinphils 0.3 thou/uL (0.0-0.7); #Lymphocytes 1.4 thou/uL (1.20-3.40); #Monocytes 0.3 thou/uL (0.11-0.59); #Neutrophils 2.4 thou/uL (1.40-6.50); %Basophils 1.2 % (0.0-1.0); %Lymphocytes 30.6 % (21.0-51.0); %Monocytes 7.7 % (0.0-10.0); %Neutrophils 54.5 % (42.0-75.0); Hemoglobin 10.3 g/dL (14.0-18.0); Mean Corpuscular HGB CONC 30.2 g/dL (32.0-36.0); Mean Corpuscular Hemoglobin 23.6 pg (27.0-31.0); Mean Corpuscular Volume 78.1 fL (78.0-98.0); Mean Platelet Volume 5.6 fL (7.4-10.4); Platelet Count 368 thou/uL (130-400); RBC Distribution Width 23.4 % (11.5-14.5); Red Blood Cell (RBC) Count 4.35 mill/uL (4.70-6.10); White Blood Cell (WBC) Count 4.4 thou/uL (4.8-10.8)
[2022-08-14 10:41] LABS: ALT (SGPT) 49 U/L (8-55); AST (SGOT) 65 U/L (5-34); Alkaline Phosphatase 102 U/L (40-110); Anion Gap 17 mmol/L (10-20); BUN (Urea Nitrogen) 6 mg/dL (8.4-25.7); Bilirubin, Total 0.6 mg/dL (0.2-1.2); Calc. Creatinine Clearance 0 mL/min (70-130); Calcium 8.6 mg/dL (7.8-10.44); Carbon Dioxide 27 mmol/L (23-31); Chloride 101 mmol/L (98-107); Estimated GFR 106; Globulin 3.1 g/dL (2.4-3.5); Glucose 79 mg/dL (80-115); Protein, Total 6.1 g/dL (5.8-8.1); Sodium 140 mmol/L (136-145)
[2022-08-14 11:04] LABS: Anisocytosis MARKED = >30 cells (100X) (0-5/hpf); MDiff Complete? YES; Platelet Morphology Comment Appears Adequate
== END 2022-08-14 10:14 | disposition home or self-care (01) ==
LOC: BURLAB 10:13
PROVIDERS: ATTEND Internal Medicine Hematology & Oncology
DX: C71.9 Malignant neoplasm of brain, unspecified (principal); N28.89 Other specified disorders of kidney and ureter; M62.81 Muscle weakness (generalized); E83.52 Hypercalcemia; I10 Essential (primary) hypertension
CPT/HCPCS: 80053; 85025; 87086

== ENCOUNTER 2022-10-09 13:59 | Emergency (ER) | payer OTHER | END 2022-10-09 14:44 | disposition home or self-care (01) | LOC: BURERS 13:59 | DX: L03.116 Cellulitis of left lower limb (principal); E03.9 Hypothyroidism, unspecified | CPT/HCPCS: 99283 ==

== ENCOUNTER 2023-02-16 13:51 | Outpatient (CLI) | payer OTHER | END 2023-02-16 13:52 | disposition home or self-care (01) | LOC: BURRAD 13:51 | PROVIDERS: ATTEND Internal Medicine Hematology & Oncology | DX: C64.2 Malignant neoplasm of left kidney, except renal pelvis (principal); C79.51 Secondary malignant neoplasm of bone; R91.8 Other nonspecific abnormal finding of lung field; Z79.899 Other long term (current) drug therapy; J98.4 Other disorders of lung | CPT/HCPCS: 71046 ==

== ENCOUNTER 2023-03-15 13:26 | Emergency (ER) | payer OTHER ==
[2023-03-15 13:58] LABS: #Eosinphils 0.2 thou/uL (0.0-0.7); #Lymphocytes 0.5 thou/uL (1.20-3.40); #Monocytes 0.3 thou/uL (0.11-0.59); #Neutrophils 2.6 thou/uL (1.40-6.50); %Eosinophils 4.5 % (0.0-10.0); %Neutrophils 73.5 % (42.0-75.0); Hemoglobin 12.6 g/dL (14.0-18.0); Mean Corpuscular HGB CONC 31.9 g/dL (32.0-36.0); Mean Corpuscular Volume 90.9 fl (78.0-98.0); Mean Platelet Volume 7.1 fL (7.4-10.4); Platelet Count 175 10x3/uL (130-400); RBC Distribution Width 15.1 % (11.5-14.5); Red Blood Cell (RBC) Count 4.34 mill/uL (4.70-6.10); White Blood Cell (WBC) Count 3.5 10x3/uL (4.8-10.8)
[2023-03-15 14:11] LABS: Bilirubin Small (Negative); Blood, Urine Negative (Negative); Clarity Clear (Clear); Glucose, Urine (Dipstick) Negative (Negative); Ketone, Urine 15 mg/dL (Negative); Leukocyte Small (Negative); Nitrite Negative (Negative); Protein, Urine (Dipstick) Negative (Neg-Trace); Specific Gravity, Urine 1.015 (1.005-1.030); Urobilinogen > or = 8.0 mg/dL (Less than 2)
[2023-03-15 14:16] LABS: ALT (SGPT) 18 U/L (8-55); AST (SGOT) 23 U/L (5-34); Albumin 3.7 g/dL (3.4-4.8); Alkaline Phosphatase 65 U/L (40-110); Anion Gap 13 mmol/L (10-20); BUN (Urea Nitrogen) 8 mg/dL (8.4-25.7); Bilirubin, Total 0.9 mg/dL (0.2-1.2); Calc. Creatinine Clearance 0 mL/min (70-130); Calcium 8.7 mg/dL (7.8-10.44); Carbon Dioxide 27 mmol/L (23-31); Chloride 103 mmol/L (98-107); Estimated GFR 103; Globulin 2.9 g/dL (2.4-3.5); Glucose 89 mg/dL (80-115); Magnesium 1.7 mg/dL (1.6-2.6); Potassium 3.6 mmol/L (3.5-5.1); Protein, Total 6.6 g/dL (5.8-8.1); Sodium 139 mmol/L (136-145)
[2023-03-15 14:34] LABS: Bacteria/HPF Rare-Few HPF (None Seen); RBC/HPF None Seen HPF (0-3); Squamous Epithelial 0-3 HPF (0-3)
== END 2023-03-15 16:46 | disposition home or self-care (01) ==
LOC: BURERS 13:26
DX: N39.0 Urinary tract infection, site not specified (principal); E86.0 Dehydration; E03.9 Hypothyroidism, unspecified; Z79.899 Other long term (current) drug therapy; D64.9 Anemia, unspecified
CPT/HCPCS: 36416; 71046; 80053; 81003; 81015; 83735; 83880; 84484; 85025; 87086; 93005; 96360; 96361

== ENCOUNTER 2023-08-31 16:18 | Outpatient (CLI) | payer OTHER | END 2023-08-31 16:19 | disposition home or self-care (01) | LOC: BUREKG 16:18 | PROVIDERS: ATTEND Family Medicine | DX: Z01.818 Encounter for other preprocedural examination (principal); R91.8 Other nonspecific abnormal finding of lung field | CPT/HCPCS: 71046; 93005; 93010 ==